=== PATIENT | female | born 1960 | race Caucasian/White ===

== ENCOUNTER → 2021-05-31 13:25 | Outpatient (CLI) | payer BC, SELFPAY ==
--- NOTE | ~2021-05-31 | DEXA_ITS ---
Bone Density Report Name: Regine Wang Age: 60 Sex: Female Ethnicity: White Date of : 1960 Indication: postmenopausal; screening for osteoporosis; height loss; Referring Provider: Sapphire, Margarette Study: Bone densitometry was performed. Exam Date: May 31, 2021 Accession number: [id number] Bone Density: Region BMD T-score Z-score Classification AP Spine (L1-L4) 0.846 -1.8 -0.2 Osteopenia Femoral Neck (Left) 0.740 -1.0 0.4 Normal Total Hip (Left) 0.851 -0.7 0.4 Normal Femoral Neck (Right) 0.843 -0.1 1.4 Normal Total Hip (Right) 0.892 -0.4 0.7 Normal Total Hip Mean 0.872 -0.6 0.6 Normal World Health Organization criteria for BMD impression classify patients as: Normal (T-score at or above -1.0), Osteopenia (T-score between -1.0 and -2.5), or Osteoporosis (T-score at or below -2.5). 10-year Fracture Risk(1): Major Osteoporotic Fracture 7.0% Hip Fracture 0.4% Reported Risk Factors: [place] (), Neck BMD=0.740, BMI=37.8 (1) FRAX(R) Version 3.08. Fracture probability calculated for an untreated patient. Fracture probability may be lower if the patient has received treatment. Clinical Information Provided by Patient: Has used the following medications: Vitamin D, MTV Patient maximum height was 64 Menopause Age: 55 Does not regularly consume dairy products Onset of menses at age 13 Number of children 1 Impression: The patient has low bone mass, based on the Total Spine T-score. The patient has an estimated ten-year risk of hip fracture of 0.4% and an estimated ten-year risk of major fracture of 7%, based on the WHO FRAX algorithm. Discussion: BONE DENSITY IS LOW AT ONE OR MORE SKELETAL SITES. This patient's lowest T-score is low at one or more skeletal sites. It meets the World Health Organization's (WHO) criteria for ?low bone mass? (T-score between -1.0 and -2.5). The patient's 10-year risk of fracture as calculated by FRAX is less than the threshold where pharmacological therapy is recommended by the National Osteoporosis Foundation (NOF). However, all treatment decisions require clinical judgment and consideration of individual patient factors, including patient preferences, comorbidities, previous drug use, risk factors not captured in the FRAX model (e.g., frailty, falls, vitamin D deficiency, increased bone turnover, interval significant decline in bone density) and possible under or overestimation of fracture risk by FRAX. The patient should follow a healthful lifestyle (good nutrition with adequate calcium and vitamin D, and appropriate weight-bearing exercise). Follow-Up: Consider repeating this study in 2 to 3 years to reassess this patient's status, or sooner if there is some new clinical indication. Reported by: SUKI on 05/31/2021 2:31:00 PM. ___
--- NOTE | ~2021-05-31 | MM_ITS ---
EXAMINATION: MM screening [facility] BI w jake HISTORY: Screening TECHNIQUE: Craniocaudal and mediolateral oblique 3-D tomosynthesis images were obtained and synthetic 2-D images were generated. CAD analysis was submitted and interpreted. COMPARISON: Comparison to multiple prior studies sequentially, with oldest reviewed study dated 01/2017. BREAST PARENCHYMAL COMPOSITION: There are scattered areas of fibroglandular density. FINDINGS: There is no evidence of suspicious mass, calcification, or architectural distortion to sugg est malignancy in either breast. There has been no suspicious interval change. IMPRESSION: 1. No mammographic evidence of malignancy. 2. Recommend routine screening mammography in one year. BI-RADS Category 1: Negative Reviewed, dictated and finalized at location A.
== END ==
PROVIDERS: Visit Provider Nurse Practitioner
DX: Z12.31 Encounter for screening mammogram for malignant neoplasm of breast (principal); Z78.0 Asymptomatic menopausal state; M85.88 Other specified disorders of bone density and structure, other site
CPT/HCPCS: 77063; 77067; 77080

== ENCOUNTER 2021-12-17 16:42 | Emergency (ER) | payer BC, SELFPAY ==
[2021-12-17 16:48] VITALS: BP 181/76; PULSE 93; RESP 20; TEMP 36.6; O2SAT 99
--- NOTE | 2021-12-17 17:19 | ED.URI ---
HPI - URI/Sore Throat General Chief Complaint: Upper Respiratory Infection Stated Complaint: sore throat/congestion/sneezing Time Seen by Provider: 12/17/21 17:19 Source: patient, RN notes reviewed and old records reviewed Mode of arrival: ambulatory Limitations: no limitations History of Present Illness HPI Narrative: 61 year old female who presents to [facility] care with complaints of one week duration of sore throat, nasal congestion and drainage and cough. Patient reports that she has been taking Mucinex and Zyrtec with no resolution of her symptoms. Patient reports that she does have some facial pressure and also frontal headache. Patient states that her drainage is now yellowish in color. Patient denies any chills or sweats, or body aches,no known fevers stated. Related Data Allergies Allergy/AdvReac Type Severity Reaction Status Date / Time acetaminophen [From Tylenol] Allergy Unknown Verified 12/17/21 17:33 Sulfa (Sulfonamide Allergy Unknown Verified 12/17/21 17:33 Antibiotics) Review of Systems Review of Systems: CONSTITUTIONAL: Denies fever, chills, or sweats. EYES: Denies visual changes, redness, or discharge. ENT: Positive for rhinorrhea, congestion, sore throat, no otalgia. CARDIOVASCULAR: Denies chest pain, palpitations, or edema. RESPIRATORY: Positive for cough denies dyspnea. GASTROINTESTINAL: Denies abdominal pain, nausea, vomiting, or diarrhea. GENITOURINARY: Denies dysuria or hematuria. SKIN: Denies rash or itching. MUSCULOSKELETAL: Denies back pain, joint pain, or myalgia. NEUROLOGIC: Positive headache, no numbness, or weakness. PSYCHIATRIC: Denies anxiety or depression. All systems reviewed & are unremarkable except as noted in HPI and below PMFSH Past Medical History Medical History (Updated 12/17/21 @ 19:39 by Jyothi Martin NP) No pertinent past medical history Surgical History Surgical History (Updated 12/17/21 @ 19:40 by Jyothi Martin NP) No history of previous surgery Social History Social History (Updated 12/17/21 @ 19:38 by Jyothi Martin NP) Smoking status: Never smoker Substance use: never Living arrangements: with family Gender identity (if verbalized by the patient): Female Comments At time of signature, agree with nursing past medical, surgical, social and family history. There is no relevant family history pertinent to the presenting complaint Exam Narrative: GENERAL: Well-appearing, well-nourished, and in no acute distress. HEAD: Normocephalic, atraumatic. EYES: PERRLA and EOMI. ENT: Nares red with turbinates swollen, yellowish rhinorrhea no epistaxis. Mucous membranes moist.TM's normal with good light reflex, throat red with no lesions or exudates, tonsils red and swollen NECK: Supple. no lymphadenopathy CHEST: Clear to auscultation. No respiratory distress.no tachypnea, SAO2 99% on room air. HEART: Regular rate and rhythm. No murmur heard. Normal peripheral pulses. ABDOMEN: Soft, nontender, nondistended, normal active bowel sounds. EXTREMITIES: Normal range of motion. No edema. SKIN: Warm, dry, no rash. NEURO: No focal deficits. Alert and oriented x3. Course Course Level of Care: Express Care Visit Vital Signs Vital signs: Vital Signs Temperature 36.6 C 12/17/21 16:48 Pulse Rate 93 12/17/21 16:48 Respiratory Rate 20 12/17/21 16:48 Blood Pressure 181/76 H 12/17/21 16:48 Pulse Oximetry 99 12/17/21 16:48 Temperature 36.6 C 12/17/21 16:48 Pulse Rate 93 12/17/21 16:48 Respiratory Rate 20 12/17/21 16:48 Blood Pressure 181/76 H 12/17/21 16:48 Pulse Oximetry 99 12/17/21 16:48 MDM - URI/Sore Throat Differential Diagnosis Differential diagnosis: Likely upper respiratory infection, sinusitis, viral infection and pharyngitis Medical Records Attestation: I reviewed the patient's medical records. Lab Data Attestation: I reviewed the patient's lab results. Lab results narrative: Strep screen negative Labs: Stre
== END 2021-12-17 17:40 | disposition home or self-care (01) ==
PROVIDERS: Emergency Provider Registered Nurse
DX: J32.9 Chronic sinusitis, unspecified (principal)
CPT/HCPCS: 87081; 87880; 99213; G0463

== ENCOUNTER → 2022-06-14 13:52 | Outpatient (CLI) | payer BC, SELFPAY ==
--- NOTE | ~2022-06-14 | MM_ITS ---
EXAMINATION: MM screening [facility] BI w jake HISTORY: Screening TECHNIQUE: Craniocaudal and mediolateral oblique 3-D tomosynthesis images were obtained and synthetic 2-D images were generated. CAD analysis was submitted and interpreted. COMPARISON: Comparison to multiple prior studies sequentially, with oldest reviewed study dated 01/2017. BREAST PARENCHYMAL COMPOSITION: Breast composed of scattered areas of fibroglandular density FINDINGS: There is no evidence of suspicious mass, calcification, or architectural distortion to sugg est malignancy in either breast. There has been no suspicious interval change. IMPRESSION: 1. No mammographic evidence of malignancy. 2. Recommend routine screening mammography in one year. BI-RADS Category 1: Negative Reviewed, dictated and finalized at location A.
== END ==
PROVIDERS: PCP Family Medicine; Visit Provider Nurse Practitioner
DX: Z12.31 Encounter for screening mammogram for malignant neoplasm of breast (principal)
CPT/HCPCS: 77063; 77067

== ENCOUNTER → 2023-04-21 07:51 | Outpatient (CLI) | payer BC, SELFPAY ==
--- NOTE | ~2023-04-21 | MMUS_ITS ---
EXAMINATION: MM diagnostic [facility] BI w jake, US breast LT complete HISTORY: Yellowish left breast nipple discharge TECHNIQUE: ML, MLO and CC 3-D tomosynthesis images of both breasts were performed and synthetic 2-D i mages were generated. Magnification views of left breast. CAD analysis was submitted and interpreted. Complete left breast ultrasound examination including all 4 quadrants and subareolar area was perform ed. COMPARISON: 06/14/2022, 05/31/2021, 12/24/2016 bilateral digital screening mammogram examinations MAMMOGRAM FINDINGS: There is a new long linear subsegmental array of abnormal suspicious amorphous mi crocalcifications including some linear branching calcifications in the inner aspect of the mid outer left breast since prior examinations. No suspicious mass or architectural distortion, skin thickening or retraction is noted otherwise. There is a biopsy marker in the upper outer left breast; history of prior benign left breast biopsy i n 2017. ULTRASOUND FINDINGS: 3:00 3 cm from nipple: There is an irregular elongated complex mixed cystic and solid lesion with shayla e internal vascularity, in the region of the suspicious mammographic findings. This measures at least 3 x 9 x 13 mm. Ultrasound-guided biopsy is recommended. 8:00 3 cm from nipple: 1.9 x 3.5 mm probable cyst Left breast subareolar area: Serpiginous irregular hypoechoic area with internal vascularity and some posterior shadowing, measuring at least 8 x 13 mm. This is very suspicious. Ultrasound-guided biopsy is recommended. IMPRESSION: 1. New suspicious mammographic microcalcifications with associated abnormal very irregular serpiginou s hypoechoic shadowing vascular masses noted on ultrasound at 3:00 and subareolar areas of left breas t. 2. Ultrasound-guided biopsy of these areas is recommended BI-RADS category 4, suspicious findings. Dr. Trevino telephoned the report and ultrasound-guided biopsy recommendations of the left breast on 04/02 at 0945 hours to [employer] Chantelle. Reviewed, dictated and finalized at location A. IMPRESSION: 1. New suspicious mammographic microcalcifications with associated abnormal ruma y irregular serpiginous hypoechoic shadowing vascular masses noted on ultrasoun d at 3:00 and subareolar areas of left breast. 2. Ultrasound-guided biopsy of these areas is recommended BI-RADS category 4, suspicious findings. Dr. Trevino telephoned the report and ultrasound-guided biopsy recommendations of the left breast on 04/21/2023 at 0945 hours to [employer] Teresa.
== END ==
PROVIDERS: PCP Family Medicine; Visit Provider Nurse Practitioner
DX: N64.52 Nipple discharge (principal); R92.8 Other abnormal and inconclusive findings on diagnostic imaging of breast
CPT/HCPCS: 76641; 77062; 77066; G0279

== ENCOUNTER 2023-05-22 09:06 | Outpatient (CLI) | payer BC, SELFPAY ==
--- NOTE | ~2023-05-22 | US_ITS ---
US breast LT limited 05/22/2023 10:19 Indication: Serpiginous structure identified on recent examination. Biopsy requested. Procedure: High-resolution Limited ultrasound of the left breast.. Dr. Ballesteros was present during the ex amination. Comparison: Ultrasound dated 04/21/2023 Findings: There is a branching duct in the subareolar location of the left breast without significant internal debris or internal vascularity. No suspicious solid masses are identified. Impression: 1: Probable benign focally prominent subareolar duct without suspicious internal debris or vascularit y. Six-month follow-up Limited left breast ultrasound recommended. Alternatively, if patient's nipple discharge persists, consider correlation with ductogram or MRI of the breasts. BI-RADS CATEGORY 3-PROBABLY BENIGN FINDING Reviewed, dictated and finalized at location A. Impression: 1: Probable benign focally prominent subareolar duct without suspicious interna l debris or vascularity. Six-month follow-up Limited left breast ultrasound rec ommended. Alternatively, if patient's nipple discharge persists, consider corre lation with ductogram or MRI of the breasts. BI-RADS CATEGORY 3-PROBABLY BENIGN FINDING
--- NOTE | ~2023-05-22 | MM_ITS ---
MM stereotactic bx LT, MM post biopsy diagnostic LT, MM stereotactic specimen LT EXAMINATION: MM stereotactic bx LT, MM post biopsy diagnostic LT, MM stereotactic specimen LT INDICATION: Abnormal mammogram with calcifications in the left breast. Stereotactic core biopsy is r equested evaluate for malignancy.] TECHNIQUE AND FINDINGS: The risks and potential benefits of the procedure were discussed with the patient and written informe d consent was obtained. The patient was placed in the prone position clustered at the table with the left breast in the caudocranial compression, and the area of interest was localized and targeted uti lizing digital imaging with stereotaxis. After sterile preparation of the skin, 1% lidocaine was utilized for local anesthesia at the skin pun cture site and 1% lidocaine with epinephrine was utilized for deeper local anesthesia/is about the bi opsy site. A 9G Vivoxid vacuum assisted biopsy needle was advanced to the level of the calcification o f interest from a caudal approach utilizing stereotactic guidance and a total of 8 tissue core biopsi es were obtained. A specimen radiograph demonstrates that the calcifications of interest are included within the tissue cores. A tissue marker clip was then placed at the biopsy site. The needle was removed and hemosta sis was achieved. The patient tolerated the procedure well and there is no evidence of significant i mmediate complication. The patient was given verbal as well as written postprocedural instructions p rior to discharge from the department. Tissue cores were submitted to surgical pathology for histolo gic analysis. A 2-view left unilateral digital mammogram was obtained post procedure and this demonstrates that the tissue marker clip is in expected position.] IMPRESSION: 1. Successful stereotactic biopsy of calcifications in the central aspect of the left breast, follow ed by tissue marker clip placement. Please refer to pathology report for histologic analysis. Reviewed, dictated and finalized at location A. IMPRESSION: 1. Successful stereotactic biopsy of calcifications in the central aspect of t he left breast, followed by tissue marker clip placement. Please refer to path ology report for histologic analysis. IMPRESSION: 1. Successful stereotactic biopsy of calcifications in the central aspect of t he left breast, followed by tissue marker clip placement. Please refer to path ology report for histologic analysis.
== END 2023-05-22 09:07 | disposition home or self-care (01) ==
PROVIDERS: PCP Family Medicine; Visit Provider Physician Assistant Surgical
DX: D05.92 Unspecified type of carcinoma in situ of left breast (principal)
CPT/HCPCS: 19081; 76642; 77065; 88305; 88342

== ENCOUNTER 2023-06-11 08:53 | Outpatient (CLI) | payer BC, SELFPAY ==
--- NOTE | ~2023-06-11 | US_ITS ---
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 The patient verbalized understanding and gave consent. Timeout procedure was performed. The skin of the left breast was prepared with sterile Betadine solution. 1% lidocaine local anestheti c was administered. With longitudinal imaging of the 2 closely associated biopsy markers, the Magsee d needle was introduced from an inferior approach and directed into the hypoechoic tissue between 2 c losely associated tissue markers. The Magseed was deployed under ultrasound guidance, with documenta tion of Magseed placement in the mass with ultrasound images. The patient was very cooperative and tolerated the procedure very well, without complaint or apparent complication. IMPRESSION: Successful percutaneous ultrasound guided Magseed placement at 6:00 1 cm from nipple soft tissue mass between 2 tissue markers Reviewed, dictated and finalized at Location A. Reviewed, dictated and finalized at location A.
--- NOTE | ~2023-06-11 | MM_ITS ---
EXAMINATION: MM post biopsy invasive LT HISTORY: Post magseed placement mammogram TECHNIQUE: ML and CC images of the left breast were performed. COMPARISON: 05/22/2023 post stereotactic biopsy mammogram FINDINGS: Radiopaque magseed is situated between 2 pre-existing tissue markers in the lower central t o outer left breast. IMPRESSION: Radiopaque magseed is situated between 2 pre-existing tissue markers in the lower central to outer le ft breast. Reviewed, dictated and finalized at location A. IMPRESSION: Radiopaque magseed is situated between 2 pre-existing tissue markers in the low er central to outer left breast.
== END 2023-06-11 08:54 | disposition home or self-care (01) ==
PROVIDERS: PCP Family Medicine; Visit Provider Surgery
DX: D05.12 Intraductal carcinoma in situ of left breast (principal)
CPT/HCPCS: 19285; A4648

== ENCOUNTER 2023-07-14 00:32 | Day surgery (SDC) | payer MEDICARE, SELFPAY ==
[2023-07-08 14:22] VITALS: BMI 36.2
--- NOTE | 2023-07-08 14:38 | PC.NURSE ---
Report to the Outpatient Waiting Room, entrance under the green pavilion located off [facility], at time ___0600____ on date __07/14/23 . Planned Procedure Time: ___07 . Time changes happen often and if your time is changed the preop area will call you the afternoon before. - You and your visitor will be asked to self-screen and do not enter if you have any COVID symptoms. - A mask is optional within the hospital at this time. Patients may have clear liquids (water, carbonated beverages, clear teas, apple juice) until 3 hours prior to surgery (0430 AM) with a maximum of 20 ounces. - No food from midnight until time of surgery - Infants may have breast milk until 4 hours before surgery, infant formula 6 hours prior to surgery. - Children will be allowed to drink immediately following surgery. If applicable, please bring a bottle or sippy cup to assist with drinking. Juice, water, soda, and popsicles are readily available. For infants on formula, please bring formula the day of surgery. Pacifiers are allowed. Take the following medications with a SIP of water the morning of surgery: NONE DO NOT STOP ANY OF YOUR OTHER PRESCRIPTION MEDICATIONS PRIOR TO SURGERY ?EXCEPT THE FOLLOWING Medications to discontinue per ANESTHESIA - _VITAMINS/SUPPLEMENTS 3 DAYS PRIOR TO SURGERY Date to take last dose____07/10/23 Please no make-up, nail nigerian, hairspray, perfume, deodorant, or body powder the day of surgery. No jewelry (including any body piercings) or valuables the day of surgery, leave them at home. Please take a shower or bath the night before, or the morning of, surgery with an antibacterial soap. Wear comfortable, loose fitting clothing. Children are encouraged to wear pajamas. - Jewelry must be removed prior to entering the operating room. Rings and piercings that are not removed may be cut off. - The hospital will not accept responsibility for valuables. - Please leave all valuables, including medications, at home the day of surgery. If you are going home after surgery, a licensed courier delivery driver must drive you home. - NO public transportation without another adult if you receive anesthesia. - We recommend that an adult stay with you for 24 hours following discharge. - We also recommend that you do not drive, make important decision, drink alcoholic beverages, or take any drugs that were not prescribed by your health care provider for at least 24 hours after your discharge time. For Pediatric surgeries, we recommend two adults accompany the child home. Follow any additional instructions given to you from your surgeon. If you or anyone in your household have experienced Covid symptoms in the past week, please notify your surgeon or the nurse liaison at the phone number below for possible testing. Telephone instructions given to ____PT and asked if any additional questions and then verbalized understanding. Patient advised to call surgeon office or pre surgery nurse liaison [phone] if any additional questions.
[2023-07-14] VITALS (10 sets, daily range): BP systolic 99–184; BP diastolic 50–90; PULSE 74–93; RESP 14–18; TEMP 35.9–36.6; O2SAT 92–100
--- NOTE | ~2023-07-14 | MM_ITS ---
EXAMINATION: MM_FAXITRON_MG INDICATION: Left breast lumpectomy with magseed localization TECHNIQUE: Left breast specimen radiographs are submitted for review. COMPARISON: None available FINDINGS: The biopsy marker and magseed are contained within the specimen radiographs. IMPRESSION: 1. Biopsy marker and magseed within the specimen radiographs. These findings were communicated at 084 1 hours on 07/14/2023. Reviewed, dictated and finalized at location A. TER REPAIR TECHNICIAN IMPRESSION: 1. Biopsy marker and magseed within the specimen radiographs. These findings we re communicated at 0841 hours on 07/14/2023.
[2023-07-14] MEDS: LACTATED RINGERS 1,000 ML 30 ML IV CONT ×2 (06:32→09:08)
--- NOTE | 2023-07-14 06:44 | WPDANESEPPF ---
Anes - Initial Pre Proc Eval Procedure: Operation Date: 07/14/23 07:30 Proposed Procedures p Left Breast Lumpectomy with Magseed Localization - Rere Demarco MD Date/Time: 07/14/23 06:44 Surgeon: Rere Demarco MD Pre Op Diagnosis: intraductal carcinoma in situ of left breast Patient Data Age: 63 Gender: F Height: 1.6 m Weight: 92.72 kg Allergies Allergy/AdvReac Type Severity Reaction Status Date / Time acetaminophen [From Tylenol] Allergy Hives Verified 07/08/23 14:18 Sulfa (Sulfonamide Allergy Rash Verified 07/08/23 14:18 Antibiotics) Home Medications Medication Instructions Recorded Confirmed Type ascorbic acid (vitamin C) 500 mg 1,000 mg PO DAILY 04/28/23 07/08/23 History capsule aspirin 81 mg chewable tablet 81 mg PO HS 04/28/23 07/08/23 History calcium citrate 1,000 mg tablet 1,000 mg PO DAILY 04/28/23 07/08/23 History cholecalciferol (vitamin D3) 125 300 mcg PO DAILY 04/28/23 07/08/23 History mcg (5,000 unit) capsule cinnamon bark 500 mg capsule 500 mg PO DAILY 04/28/23 07/08/23 History (Cinnamon) omega-3 fatty acids-fish oil 360 1 cap PO DAILY 04/28/23 07/08/23 History mg-1,200 mg capsule (Fish Oil) vitamin B complex (B 1 tablet PO DAILY 04/28/23 07/08/23 History Complex-Vitamin B12 tablet) flaxseed 1 cap DAILY 07/08/23 07/08/23 History multivitamin 1 tablet PO DAILY 07/08/23 07/08/23 History tumeric 100 mg-lavern 150 mg-olive 1 cap PO DAILY 07/08/23 07/08/23 History 50 mg-oreg 150 mg-caprylate capsule vitamin E 1 cap DAILY 07/08/23 07/08/23 History Patient hx anesthesia problems: none Family hx anesthesia problems: none Results Review: All pre-operative results and documents have been reviewed as part of the pre-operative evaluation. [facility] Past Medical History Medical History (Updated 07/14/23 @ 06:45 by Ken Alva MD) Obesity Snoring never tested for BHAVANA Tonsil stone has one q6 weeks, last 3 weeks ago Surgical History Surgical History (Updated 07/14/23 @ 06:46 by Ken Alva MD) H/O colonoscopy History of section Family History Family History Father Pancreatic cancer Hypertension Grandparent Breast cancer Pancreatic cancer Social History Social History Smoking status: Never smoker Second hand tobacco smoke exposure: No Alcohol intake: current Alcohol use details: WINE ON FRIDAY WITH COMMUNION Substance use: never Substance use type: does not use Lack of Transportation: No Lack of Food: Never True Current Housing: I Have Housing Concerned About Future Housing: No Difficulty Paying Gas/Electric Bills: No Difficulty Paying for Meds: No Currently Unemployed: No Education: High School Diploma/GED Difficulty w/ Childcare or Family Care: No Living arrangements: with family Gender identity (if verbalized by the patient): Female Spiritual care concerns: No Anes - Eval Final PreProcedure Day of Procedure 07/14/23 06:44 Patient weight: obese Heart: regular rate and rhythm Lungs: clear to auscultation Airway: Mallampati scale class III Neurological: alert and oriented Last oral intake: >/= 8 hours ASA classification: III Emergent: no Anesthetic plan: proceed Anesthesia type and monitoring: general LMA and standard monitoring Results Review: All pre-operative results and documents have been reviewed as part of the pre-operative evaluation. Informed Consent: The patient's anesthetic plan and its attendant risks and benefits were discussed with the patient/family/POA. Questions were solicited and answers provided to the satisfaction of the patient/family/POA.
--- NOTE | 2023-07-14 06:57 | WPDHPUPDATE1 ---
History and Physical Update Update Date/Time: 07/14/23 06:57 History and Physical has been reviewed, including an updated exam of the patient. There are NO changes in the patient's condition. Risks, benefits, and alternatives have been discussed and questions answered. Patient agrees to proceed with procedure.
[2023-07-14] MEDS: ceFAZolin 2 GM/D5W 50 ML 2 GM/50 ML BAG IVPB (07:30)
[2023-07-14] MEDS: BUPIVACAINE/EPINEPHRINE 0.5% 50 ML VIAL 30 ML INFILTRATE (07:55)
--- NOTE | 2023-07-14 08:50 | SUR.OPER ---
Left Breast Lumpectomy- Incision @ 0750 Excision @ 0829 Faxitron @ 0835 Rad Report @ 0844 Out of room @ 0847 Received by lab @ 0848 Left Breast Inferior Margin Excision @ 0822 Out of Room @ 0848 Left Breast Anterior Margin Excision @ 0823 Out of Room @0800
--- NOTE | 2023-07-14 08:57 | W.PM.PROC2 ---
Procedure Note - Detailed Date of Procedure 07/14/23 Pre-op Diagnosis Left breast ductal carcinoma in situ Left nipple discharge, pathological Post-op Diagnosis Same Procedure Performed 1. Left breast lumpectomy with magseed localization 2. Central ductal exploration and excision en bloc 3. Shave biopsy of nipple skin Surgeon Rere Demarco MD Freight Unloader Lizzette Wise PA-C Anesthesia General Indications 63-year-old female who presented for evaluation of abnormal left nipple discharge and suspicious microcalcifications on mammogram. Stereotactic biopsy of microcalcifications showed high-grade DCIS, and after discussing surgical options, patient elected to proceed with breast conservation therapy with lumpectomy and adjuvant radiation. Risks of the procedure were discussed with the patient which included but not limited to risk of bleeding, infection, positive margin, recurrence, possible need for additional procedures in the future, asymmetry, wound healing problems, as well as the risk of anesthesia. All questions were answered patient has agreed to proceed. Description of Procedure The patient underwent maxi localization under stereotactic guidance by Radiology and presented to the preoperative area for surgery. She was taken to the operating room and laid supine in the OR table. Sequential compression devices were applied. General anesthesia was induced without difficulty. The left chest area was prepped and draped in a sterile fashion. The sentimag probe was used to identify the area of highest activity which was in the inferior periareolar area. A small inferior periareolar incision was made and dissection was carried down through the subcutaneous tissue. The probe was used to guide the margins around the Mag seed, and care was taken to ensure that the microcalcifications seen on previous mammogram were included in the lumpectomy specimen (which on mammogram appear to be at least 7 cm deep into the breast). The probe was used to scan the margins around the seed and an additional inferior and anterior margin were excised due to close proximity. The lumpectomy specimen was oriented using surgical paint according to the electrical appliance servicer instructions and placed in the Faxitron. Intraoperative images were taken and reviewed the biopsy clip, the mass and magseed as well as microcalcifications within the specimen. The lumpectomy specimen as well as the anterior and inferior margins were sent to pathology as fresh specimen. Given patient's nipple discharge, a lacrimal probe was placed to the exterior opening of the duct noted to have the nipple discharge. I was able to identify the duct and this was included in the lumpectomy specimen. A small shave biopsy was taken of the nipple, given the desquamated appearance and sent as permanent specimen to pathology. Hemostasis was assured. The cavity was approximated with 2 0 Vicryl for intraparenchymal sutures. The deep dermal layer was then closed with 3-0 Vicryl in interrupted fashion followed by 4-0 Monocryl in a subcuticular fashion. Dermabond was applied followed by sterile dressing and a surgical bra. Patient was awoken from anesthesia and taken to the recovery in stable condition. All needles, instruments, and sponge counts were correct as reported by the operating room staff. Lizzette Wise PA-C was present and assisted with retraction patient positioning throughout the case. Estimated Blood Loss 5 Drains No Pathology Yes Complications No immediate complications Condition Stable Disposition PACU [facility] Billing Surgery - Charge Forward: Surgery Billing (CPT 14123, 66922, [id number])
== END 2023-07-14 11:16 | disposition home or self-care (01) ==
PROVIDERS: PCP Family Medicine; Visit Provider Surgery
PROC: (CPT 19301; principal; 2023-07-14 07:30)
DX: D05.12 Intraductal carcinoma in situ of left breast (principal); C44.591 Other specified malignant neoplasm of skin of breast; Z79.82 Long term (current) use of aspirin; E66.9 Obesity, unspecified; Z68.29 Body mass index [BMI] 29.0-29.9, adult; Z17.0 Estrogen receptor positive status [ER+]
CPT/HCPCS: 19301; 11102; 76098; 88305; 88307; 88342; J0690; J1100; J2250; J2371; J2704; J3010; J7120; Q9968

== ENCOUNTER → 2023-07-23 12:45 | Outpatient (CLI) | payer MEDICARE, SELFPAY ==
--- NOTE | ~2023-07-23 | DEXA_ITS ---
Bone Density Report Name: RIA GERMAN Age: 63 Sex: Female Ethnicity: White Date of : 1960 Indication: osteopenia; height loss; postmenopausal Referring Provider: Sapphire, Margarette Study: Bone densitometry was performed. Exam Date: July 23, 2023 Accession number: [id number] Bone Density: Region BMD T-score Z-score Classification AP Spine (L1-L4) 0.805 -2.2 -0.4 Osteopenia Femoral Neck (Left) 0.809 -0.4 1.2 Normal Total Hip (Left) 0.881 -0.5 0.7 Normal Femoral Neck (Right) 0.810 -0.4 1.2 Normal Total Hip (Right) 0.903 -0.3 0.9 Normal Total Hip Mean 0.892 -0.4 0.8 Normal World Health Organization criteria for BMD impression classify patients as: Normal (T-score at or above -1.0), Osteopenia (T-score between -1.0 and -2.5), or Osteoporosis (T-score at or below -2.5). 10-year Fracture Risk(1): Major Osteoporotic Fracture 6.5% Hip Fracture 0.3% Reported Risk Factors: [place] (), Neck BMD=0.810, BMI=36.4 (1) FRAX(R) Version 3.08. Fracture probability calculated for an untreated patient. Fracture probability may be lower if the patient has received treatment. Previous Exams: Region Exam Age BMD T-score BMD Change BMD Change Date g/cm2 vs Baseline vs Previous AP Spine(L1-L4) 07/23/2023 63 0.805 -2.2 -0.042* -0.042* 05/31/2021 60 0.846 -1.8 Total Hip(Left) 07/23/2023 63 0.881 -0.5 0.030* 0.030* 05/31/2021 60 0.851 -0.7 Total Hip(Right) 07/23/2023 63 0.903 -0.3 0.010 0.010 05/31/2021 60 0.892 -0.4 *Denotes significance at 95% confidence level, LSC for AP Spine = 0.022 g/cm2, LSC for Total Hip = 0.027 g/cm2 Clinical Information Provided by Patient: Has used the following medications: Vitamin D, Calcium, MTV Patient maximum height was 64 Menopause Age: 55 No regular weight bearing exercise Does not regularly consume dairy products Onset of menses at age 13 Number of children 1 Impression: The patient has low bone mass, based on the Total Spine T-score. The patient has an estimated ten-year risk of hip fracture of 0.3% and an estimated ten-year risk of major fracture of 6.5%, based on the WHO FRAX algorithm. The BMD for the AP Spine(L1-L4) decreased, changing by -0.042 since the last DXA exam. Discussion: BONE DENSITY IS LOW AT ONE OR MORE SKELETAL SITES. This patient's lowest T-score is low at one or more skeletal sites. It meets the W
== END ==
PROVIDERS: PCP Nurse Practitioner; Visit Provider Nurse Practitioner
DX: M85.88 Other specified disorders of bone density and structure, other site (principal)
CPT/HCPCS: 77080

== ENCOUNTER 2023-08-12 14:13 | Outpatient (CLI) | payer MEDICARE, SELFPAY | END 2023-08-12 14:14 | disposition home or self-care (01) | PROVIDERS: PCP Family Medicine; Visit Provider Surgery | DX: Z01.818 Encounter for other preprocedural examination (principal); D05.12 Intraductal carcinoma in situ of left breast | CPT/HCPCS: 36415; 86850; 86900; 86901 ==

== ENCOUNTER 2023-08-14 00:16 | Day surgery (SDC) | payer MEDICARE, SELFPAY ==
--- NOTE | 2023-08-11 13:07 | PC.NURSE ---
PRE-OP INSTRUCTIONS, PLEASE READ CAREFULLY Report to the Outpatient Waiting Room, entrance under the green pavilion located off [facility], at time _0630_ on date _08/14/23_. Planned Procedure Time: _0830_. PACK A SMALL OVERNIGHT BAG AND LEAVE IN THE CAR Time changes happen often and if your time is changed the preop area will call you the afternoon before. - You and your visitor will be asked to self-screen and do not enter if you have any COVID symptoms. - A mask is optional within the hospital at this time. Patients may have clear liquids (water, carbonated beverages, clear teas, apple juice) until 3 hours prior to surgery (0530 AM) with a maximum of 20 ounces. - No food from midnight until time of surgery Take the following medications with a SIP of water the morning of surgery: _TRAMADOL IF NEEDED_ DO NOT STOP ANY OF YOUR OTHER PRESCRIPTION MEDICATIONS PRIOR TO SURGERY ?EXCEPT THE FOLLOWING Medications to discontinue per DR. ERNANDEZ - _VITAMINS/SUPPLEMENTS 5 DAYS PRIOR TO SURGERY, Last Dose_08/08/23 (PER PATIENT)_ Please no make-up, nail maltese, hairspray, perfume, deodorant, or body powder the day of surgery. No jewelry (including any body piercings) or valuables the day of surgery, leave them at home. Please take a shower or bath the night before, or the morning of, surgery with an antibacterial soap. Wear comfortable, loose fitting clothing. - Jewelry must be removed prior to entering the operating room. Rings and piercings that are not removed may be cut off. - The hospital will not accept responsibility for valuables. - Please leave all valuables, including medications, at home the day of surgery. If you are going home after surgery, a licensed four horse hitch driver must drive you home. - NO public transportation without another adult if you receive anesthesia. - We recommend that an adult stay with you for 24 hours following discharge. - We also recommend that you do not drive, make important decision, drink alcoholic beverages, or take any drugs that were not prescribed by your health care provider for at least 24 hours after your discharge time. Follow any additional instructions given to you from your surgeon. If you or anyone in your household have experienced Covid symptoms in the past week, please notify your surgeon or the nurse liaison at the phone number below for possible testing. Telephone instructions given to _PATIENT_and asked if any additional questions and then verbalized understanding. Patient advised to call surgeon office or pre surgery nurse liaison [phone] if any additional questions.
[2023-08-11 13:11] VITALS: BMI 36.1
[2023-08-14] VITALS (15 sets, daily range): BP systolic 126–182; BP diastolic 64–89; PULSE 80–107; RESP 11–18; TEMP 36–36.5; O2SAT 95–100
--- NOTE | ~2023-08-14 | NM_ITS ---
NM sentinel node inject only 08/14/2023 11:28 TRANSCRIBING OPERATOR HEAD INDICATION: Left breast cancer TECHNIQUE: 0.997 Millicuries Tc 99m filtered sulfur colloid was injected and 4 aliquots in the anteri or upper outer quadrant of the breast near the areola. No images were obtained. IMPRESSION: 1: Status post left breast sentinel lymph node radiopharmaceutical injection. Reviewed, dictated and finalized at location A. SCRIBING OPERATOR HEAD
[2023-08-14] MEDS: LACTATED RINGERS 1,000 ML 30 ML IV CONT ×3 (07:00→14:24)
--- NOTE | 2023-08-14 08:08 | P.HPUP_ITS ---
History and Physical Update Update Date/Time: 08/14/23 08:08 Patient seen and examined in pre-operative holding area. No interval change in medical history or symptoms. Patient recalls previous discussion of benefits and alternatives to procedure. Continues to desire to proceed with immediate left breast reconstruction with silicone implant and alloderm possible tissue restaurant bartender and symmetrizing right breast reduction . Reviewed procedure, post-op expectations and risks including but not limited to bleeding, infection, injury to tendon/nerve/vessel, decreased hand function, stiffness, RSD, no change or worsening of symptoms. I discussed the possible use of assistants and their participation in the case. Patient stated understanding and signed the consent form wishing to proceed.
--- NOTE | 2023-08-14 08:09 | WPDHPUPDATE1 ---
History and Physical Update Update Date/Time: 08/14/23 08:09 History and Physical has been reviewed, including an updated exam of the patient. There are NO changes in the patient's condition. Risks, benefits, and alternatives have been discussed and questions answered. Patient agrees to proceed with procedure.
--- NOTE | 2023-08-14 08:23 | W.PM.PROC2 ---
Procedure Note - Detailed Date of Procedure 08/14/23 Pre-op Diagnosis left breast CA Post-op Diagnosis Other (acquired absence left breast) Procedure Performed left breast reconstruction with pre-pec silicone implant and alloderm and symmetrizing right breast reduction Surgeon Cooper Franks MD Topper Press Operator Automatic Lizzette Wise PA-C Anesthesia General Description of Procedure Patient was seen in the preoperative holding area and marked. She was taken back to the operating room placed on the table in the supine position. Time-out was performed with Anesthesia surgeons and staff agreeing patient's name site of surgery performed. SCDs were placed on the lower extremities. Antibiotics were given IV. After general anesthesia was administered the breasts were prepped and draped in usual sterile fashion. Care was then given to Dr. demarco proceeded with performing the left sentinel lymph node biopsy. This is dictated separately. After Dr. Demarco completed her sentinel lymph node biopsy I turned my attention to the left breast. The patient was notably ptotic as discussed in preoperative planning and management of the skin was essential for adequate reconstruction. The patient's diagnosis also include Paget's disease of the nipple which was requiring removal of the nipple and areolar complex. I had designed a Man pattern incision to perform a mastopexy and including removal of the nipple to allow for redraping of the skin for her reconstruction and achieve a reasonably symmetric reconstruction to her right breast. I proceeded with using a 10 blade scalpel to de epithelialize a 12 cm wide inferior pedicle up to the nipple-areolar complex. I made my other skin incisions consistent with a Man pattern reduction and then with the assistance of Dr. demarco proceeded with elevating the skin flaps and assisting Dr. Demarco in performing the left total mastectomy. After Dr. Demarco completed the mastectomy and it was noted the skin flaps appeared viable., I irrigated the pocket with antibiotic irrigation and achieved hemostasis with bovie cautery. I proceeded with sewing in a piece of large, contoured perforated alloderm along the IMF and anterior axillary line with 2-0 vicryl to help provide support and protection for the implant. Various silicone breast sizers were used and it was determined that [id number] implant would be appropriate to match patients right breast A 10 flat Etd drain and on Q pump catheter was then placed in the left breast pocket. I then prepped the skin with Betadine. New towels were placed. Changed gloves and rinsed instruments and antibiotic irrigation.I took a rikye [id number] implant directly from the package after rinsing in abx irrigation and placed it in the prepec, suballoderm pocket and immediately closed t-junction with 2-0 prolene. 3-0 vicryl was used for dermis and to tack the de-epithelialized inferior pedicle up over the implant as well. 4-0 monocryl was used for subcuticular closure. Next my attention to the right breast where I used a saline moistened lap pad and Michelle clamp to create a breast tourniquet. 38 mm nipple Sizer was used to circumscribe the nipple-areolar complex. I proceeded with making these incisions with 15 blade scalpel and de epithelializing a 9 cm wide inferior pedicle. Mm pattern skin incisions and then proceeded with using Bovie electrocautery to raise the skin flaps to expose entire breast tissue down to the chest wall. this was done and compressed plane. A presumed with resection of 67.5 g of tissue which allowed reasonable symmetry to the reconstructed left breast. I plicated the pedicle with 2-0 Vicryl suture. I irrigated with normal saline and hemostasis with Bovie electrocautery. 2-0 Prolene suture was used for the T junction. 3-0 Vicryl suture was used for dermal closure. The nipple was brought out at 5 cm above the inframammary fold at the most prominent portio
--- NOTE | 2023-08-14 08:26 | WPDANESEPP ---
Anes - Eval Pre Procedure Procedure: Operation Date: 08/14/23 08:30 Proposed Procedures p Left Total Non-Nipple Sparing Mastectomy, Left Axillary Homer Lymph Node Biopsy with Lymphoseek Injection, - Rere Demarco MD s Left Breast Pre-Pectoral Silicone Implant with Acellular Dermal Matrix Placement, Possible Wire-Patter Incision, Symmetrizing Right Breast Reduction - Cooper Franks MD Date/Time: 08/14/23 08:26 Pre Op Diagnosis: left breast CA Patient Data Age: 63 Gender: F Height: 1.6 m Weight: 97.7 kg Last Vital Signs Temp 97.7 F 08/14/23 07:00 Pulse 83 08/14/23 07:00 Resp 18 08/14/23 07:00 BP 149/78 H 08/14/23 07:00 Pulse Ox 100 08/14/23 07:00 O2 Del Method Room Air 08/14/23 07:00 Allergies Allergy/AdvReac Type Severity Reaction Status Date / Time acetaminophen [From Tylenol] Allergy Hives Verified 08/14/23 07:54 Sulfa (Sulfonamide Allergy Rash Verified 08/14/23 07:54 Antibiotics) Home Medications Medication Instructions Recorded Confirmed Type ascorbic acid (vitamin C) 500 mg 1,000 mg PO DAILY 04/28/23 08/14/23 History capsule aspirin 81 mg chewable tablet 81 mg PO HS 04/28/23 08/11/23 History calcium citrate 1,000 mg tablet 1,000 mg PO DAILY 04/28/23 08/14/23 History cholecalciferol (vitamin D3) 125 300 mcg PO DAILY 04/28/23 08/14/23 History mcg (5,000 unit) capsule cinnamon bark 500 mg capsule 500 mg PO DAILY 04/28/23 08/14/23 History (Cinnamon) omega-3 fatty acids-fish oil 360 1 cap PO DAILY 04/28/23 08/14/23 History mg-1,200 mg capsule (Fish Oil) vitamin B complex (B 1 tablet PO DAILY 04/28/23 08/14/23 History Complex-Vitamin B12 tablet) flaxseed 1 cap DAILY 07/08/23 08/14/23 History multivitamin 1 tablet PO DAILY 07/08/23 08/14/23 History tumeric 100 mg-lavern 150 mg-olive 1 cap PO DAILY 07/08/23 08/14/23 History 50 mg-oreg 150 mg-caprylate capsule vitamin E 1 cap DAILY 07/08/23 08/14/23 History tramadol 50 mg tablet 50 mg PO Q6H PRN pain #8 tabs 07/14/23 08/11/23 Rx cephalexin 500 mg capsule 500 mg PO Q8H #21 caps 08/14/23 Rx tramadol 50 mg tablet 50 mg PO Q6H PRN pain #12 tabs 08/14/23 Rx Patient hx anesthesia problems: none Family hx anesthesia problems: none Results Review: All pre-operative results and documents have been reviewed as part of the pre-operative evaluation. [facility] Past Medical History Medical History Abnormality of left breast on screening mammogram Arthritis Ductal carcinoma in situ (DCIS) of left breast Obesity Paget disease of breast Snoring never tested for BHAVANA Tonsil stone has one q6 weeks, last 3 weeks ago Surgical History Surgical History H/O colonoscopy History of section Family History Family History Father Pancreatic cancer Hypertension Grandparent Breast cancer Pancreatic cancer Social History Social History Smoking status: Never smoker Second hand tobacco smoke exposure: No Alcohol intake: current Drinks per week: 1 Alcohol use details: WINE ON SUNDAYS WITH COMMUNION Substance use: never Substance use type: does not use Lack of Transportation: No Lack of Food: Never True Current Housing: I Have Housing Concerned About Future Housing: No Difficulty Paying Gas/Electric Bills: No Difficulty Paying for Meds: No Currently Unemployed: No Education: High School Diploma/GED Difficulty w/ Childcare or Family Care: No Living arrangements: with family Gender identity (if verbalized by the patient): Female Spiritual care concerns: No Exam Day of Procedure 08/14/23 08:26 Patient weight: obese Heart: regular rate and rhythm Lungs: clear to auscultation Airway: Mallampati scale class II Neurological: alert and oriente
--- NOTE | 2023-08-14 08:31 | P.PNAN_ITS ---
Anes - Eval Final PreProcedure Day of Procedure 08/14/23 08:31 Patient weight: normal Heart: regular rate and rhythm Lungs: clear to auscultation Neurological: alert and oriented Last oral intake: >/= 8 hours ASA classification: III Emergent: no Anesthetic plan: proceed Anesthesia type and monitoring: general and standard monitoring Results Review: All pre-operative results and documents have been reviewed as part of the pre- operative evaluation. Informed Consent: The patient's anesthetic plan and its attendant risks and benefits were discussed with the patient/family/POA. Questions were solicited and answers provided to the satisfaction of the patient/family/POA.
[2023-08-14] MEDS: ceFAZolin 2 GM/D5W 50 ML 2 GM/50 ML BAG IVPB (08:53)
[2023-08-14] MEDS: ceFAZolin SODIUM 1 GM VIAL (09:11)
[2023-08-14] MEDS: METHYLENE BLUE 0.5% INJ 10 ML AMPULE 20 ML IRRIGATION (09:15)
[2023-08-14] MEDS: LIDO 1%/EPINEPHRINE 1:100,000 20 ML VIAL 30 ML INFILTRATE (09:24)
--- NOTE | 2023-08-14 11:44 | W.PM.PROC2 ---
Procedure Note - Detailed Date of Procedure 08/14/23 Pre-op Diagnosis Left breast multifocal high grade ductal carcinoma in situ Paget's disease of the left breast Post-op Diagnosis Same Procedure Performed 1. Left total non nipple sparing mastectomy - CPT 89149 2. Injection of diluted methylene blue dye - CPT 88398 3. Left axillary sentinel lymph node biopsy - CPT 06515 39668 - RT, 80 - assist closure of right reduction mammoplasty Surgeon Rere Demarco MD Sap Functional Analyst Cooper Franks MD Anesthesia General Indications 63-year-old female who underwent a left lumpectomy for left breast high-grade DCIS.? Intraoperative biopsy of the nipple showed involvement of the epithelium with tumor cells which is consistent with Paget's disease.? Patient also had small foci noted on the posterior and medial margin consistent with positive margins as well as multifocal extensive disease.? After options were reviewed with the patient as well as recommendation of treatment for Paget's disease, which entails bloc excision of the nipple-areolar complex,? with strong recommendation for a total mastectomy specially in the setting of multifocal extensive high-grade DCIS such as in her case. Patient elected to proceed with left total mastectomy, with sentinel lymph node biopsy, immediate reconstruction with silicone implant, and contralateral right breast oncoplastic reduction. ? Description of Procedure Patient was identified in the pre-operative area and brought to the OR suite. She underwent lymphoseek injection in Nuclear Medicine prior to presenting to pre-operative area. She was laid supine in the operating table and sequential compression devices were applied. General anesthesia was induced without difficulties. Bilateral chest areas and left axilla were prepped and draped in a sterile fashion. The gamma probe was used to scan the left axilla to find the area of highest radioactivity and a small incision was made overlying this area. Dissection was carried down through the subcutaneous tissue and the clavipectoral fascia was encountered and incised. The gamma probe was used to identify a lymph node that was both hot and blue. This was carefully excised using the LigaSure device. The gamma probe was used to obtain the following count for sentinel lymph node 1, 2500. The node was sent to pathology as a permanent specimen, the gamma probe was used to scan the axilla looking for the node was that at least 10% of the node #1. We were unable to identify any further nodes, and at this point the axilla was irrigated and hemostasis was assured. The clavipectoral fascia was approximated with 3-0 vicryl in a running fashion. The deep dermal layer was then closed with interrupted 3-0 vicryl and a 4-0 monocryl in a subcuticular fashion. Attention was then turned to the left breast. Dr Franks had previously marked the coleman pattern incision, and this was made with a 15 blade. Dissection was carried down to the subcutaneous tissue until the thin areolar tissue plane was encountered.? This was then dissected superiorly to the inferior aspect of the clavicle, medially to the lateral aspect of the sternum, laterally to the latissimus dorsi, and inferiorly to the inframammary fold.? The breast tissue, along with the pectoralis fascia, the nipple areaola complex and bilateral lower skin pedicles were excised en bloc. The specimen was oriented with a short stitch superiorly and long stitch laterally, and sent to pathology as the fresh specimen.? Hemostasis was assured.?The case was then turned over to plastic surgery for immediate reconstruction with placement of silicone implant, please refer to Dr Franks operative note for further details.?Patient tolerated the procedure well with no immediate complications. Lizzette Wise PA-C was present and assisted with patient positioning and retraction throughout the case. Dr Franks assisted with exposure for the left breast mastectomy portion.
--- NOTE | 2023-08-14 12:20 | SUR.OPER ---
ON q PAIN PUMP PER PHARMACY 270ML/2ML/HR LOT [id number], EXP 2024-09-08.
[2023-08-14] MEDS: fentaNYL CITRATE INJ (*CRX) 100 MCG/2 ML VIAL 25 MCG IV PUSH ×4 (12:26→13:31)
--- NOTE | 2023-08-14 12:57 | SUR.PHASEI ---
1253: Simple mask removed.
[2023-08-14] MEDS: hydrALAZINE HCL 20 MG/ML VIAL 5 MG IV PUSH ×2 (13:25→13:53)
[2023-08-14] MEDS: oxyCODONE HCL (*CRX) 5 MG TAB IR PO (15:10)
--- NOTE | 2023-08-14 15:33 | SUR.PHASEII ---
MD Demarco contacted to ask if scopalamine patch is ok. Ok to give per .
[2023-08-14] MEDS: SCOPOLAMINE 1.5 MG PATCH TRANSDERM (15:40)
== END 2023-08-14 16:10 | disposition home or self-care (01) ==
PROVIDERS: Plastic Surgery; PCP Family Medicine; Visit Provider Surgery
PROC: (CPT 19303; principal; 2023-08-14 08:30)
PROC: (CPT 15777; 2023-08-14 08:30)
DX: D05.12 Intraductal carcinoma in situ of left breast (principal); C50.012 Malignant neoplasm of nipple and areola, left female breast; Z79.82 Long term (current) use of aspirin; E66.9 Obesity, unspecified; Z68.38 Body mass index [BMI] 38.0-38.9, adult
CPT/HCPCS: 19340; 15777; 19318; 19303; 38525; 36415; 38792; 86850; 86900; 86901; 88305; 88307; A9270; A9520; C1713; J0360; J0690; J1100; J1170; J1580; J2250; J2371; J2405; J2704; J3010; J7120; Q9968

== ENCOUNTER 2023-09-26 08:30 | Outpatient (CLI) | payer MEDICARE, SELFPAY ==
[2023-09-26 08:46] LABS: Basophils Absolute Auto 0.1 K/mm3 (0.0-0.1); Basophils Percent Auto 1.4 % (0.2-1.2); Eosinophils Absolute Auto 0.2 K/mm3 (0-0.3); Eosinophils Percent Auto 3.8 % (0-4.4); Hemoglobin 13.4 g/dL (12.0-15.0); Immature Granulocyte Absolute 0.01 K/mm3 (0.00-0.031); Immature Granulocyte Percent A 0.2 % (0-0.5); Lymphocytes Absolute Auto 1.73 K/mm3 (0.9-3.2); Lymphocytes Percent Auto 29.7 % (18.3-44.2); Mean Corpuscular HGB Conc 33.5 g/dl (32-36); Mean Corpuscular Hemoglobin 32.2 pg (26-34); Mean Corpuscular Volume 96.2 fl (80-100); Mean Platelet Volume 9.5 fl (7.4-10.4); Monocytes Absolute Auto 0.9 K/mm3 (0.1-0.6); Monocytes Percent Auto 14.9 % (2.6-8.5); Neutrophils Absolute Auto 2.9 K/mm3 (1.3-6.7); Platelet Count Result 290 k/mm3 (150-375); Red Blood Count 4.16 M/mm3 (4.2-5.4); Red Cell Distribution Width 13.6 % (11.5-14.5); White Blood Count 5.8 K/mm3 (4.5-10.0)
[2023-09-26 09:42] LABS: Alanine Aminotransferase 22 U/L (6-35); Albumin Level 4.3 g/dL (3.5-5.1); Alkaline Phosphatase 70 U/L (38-126); Anion Gap 7 mmol/L (8-16); Aspartate Amino Transferase 41 U/L (14-36); Bilirubin,Total 1.2 mg/dL (0.2-1.3); Blood Urea Nitrogen 21 mg/dL (7-17); Calcium 9.8 mg/dL (8.4-10.2); Carbon Dioxide 30 mmol/L (22-30); Chloride 103 mmol/L (98-107); Estimated Glomerular Filt Rate > 60; Glucose 114 mg/dL (65-110); Potassium 4.5 mmol/L (3.4-5.0); Sodium 140 mmol/L (137-145)
== END 2023-09-26 08:31 | disposition home or self-care (01) ==
LOC: ANHLAB 08:31
PROVIDERS: PCP Family Medicine; Visit Provider Internal Medicine Hematology & Oncology
DX: D05.12 Intraductal carcinoma in situ of left breast (principal)
CPT/HCPCS: 36415; 80053; 85025

== ENCOUNTER 2024-01-02 08:30 | Outpatient (CLI) | payer MEDICARE, SELFPAY ==
[2024-01-02 08:48] LABS: Basophils Absolute Auto 0.1 K/mm3 (0.0-0.1); Basophils Percent Auto 1.2 % (0.2-1.2); Eosinophils Absolute Auto 0.2 K/mm3 (0-0.3); Eosinophils Percent Auto 2.6 % (0-4.4); Hematocrit 39.2 % (37.0-47.0); Hemoglobin 13.5 g/dL (12.0-15.0); Immature Granulocyte Absolute 0.02 K/mm3 (0.00-0.031); Immature Granulocyte Percent A 0.3 % (0-0.5); Lymphocytes Absolute Auto 1.78 K/mm3 (0.9-3.2); Lymphocytes Percent Auto 29.3 % (18.3-44.2); Mean Corpuscular HGB Conc 34.4 g/dl (32-36); Mean Corpuscular Hemoglobin 32.8 pg (26-34); Mean Corpuscular Volume 95.1 fl (80-100); Mean Platelet Volume 9.9 fl (7.4-10.4); Monocytes Absolute Auto 0.7 K/mm3 (0.1-0.6); Monocytes Percent Auto 11.7 % (2.6-8.5); Neutrophils Absolute Auto 3.3 K/mm3 (1.3-6.7); Neutrophils Percent Auto 54.9 % (45.5-73.1); Platelet Count Result 242 k/mm3 (150-375); Red Blood Count 4.12 M/mm3 (4.2-5.4); Red Cell Distribution Width 13.1 % (11.5-14.5); White Blood Count 6.1 K/mm3 (4.5-10.0)
[2024-01-02 08:54] LABS: Blood Urea Nitrogen 15 mg/dL (8-26); Carbon Dioxide 27 mmol/L (22-30); Chloride 104 mmol/L (98-109); Estimated Glomerular Filt Rate > 60; Glucose 108 mg/dL (70-105); Ionized Calcium (POC) 1.24 mmol/L (1.11-1.31); Potassium 4.4 mmol/L (3.5-4.9); Sodium 142 mmol/L (138-146)
[2024-01-02 11:51] LABS: Alanine Aminotransferase 18 U/L (6-35); Albumin Level 4.3 g/dL (3.5-5.1); Alkaline Phosphatase 53 U/L (38-126); Anion Gap 6 mmol/L (4-12); Aspartate Amino Transferase 22 U/L (14-36); Bilirubin,Total 0.6 mg/dL (0.2-1.3); Blood Urea Nitrogen 16 mg/dL (7-17); Calcium 9.8 mg/dL (8.4-10.2); Carbon Dioxide 28 mmol/L (22-30); Chloride 106 mmol/L (98-107); Estimated Glomerular Filt Rate > 60; Glucose 104 mg/dL (65-110); Potassium 4.4 mmol/L (3.4-5.0); Sodium 140 mmol/L (137-145)
== END 2024-01-02 08:31 | disposition home or self-care (01) ==
PROVIDERS: PCP Family Medicine; Visit Provider Internal Medicine Hematology & Oncology
DX: D05.12 Intraductal carcinoma in situ of left breast (principal)
CPT/HCPCS: 36415; 80047; 80053; 85025

== ENCOUNTER 2024-04-30 10:20 | Outpatient (CLI) | payer MEDICARE, SELFPAY ==
--- NOTE | ~2024-04-30 | MMUS_ITS ---
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 Status post right breast reduction in left. Weight loss. TECHNIQUE: Additional 3-D tomosynthesis images of the right breast were performed and synthetic 2-D i mages were generated. CAD analysis was submitted and interpreted. High resolution complete right nicolette st ultrasound was performed. COMPARISON: Comparison to multiple prior studies sequentially, with oldest reviewed study dated 12/24. BREAST PARENCHYMAL COMPOSITION: Not dense: There are scattered areas of fibroglandular density. FINDINGS: MAMMOGRAPHIC FINDINGS: There are no suspicious masses, calcifications or architectural distortion in the right breast to sug gest malignancy. There are changes of right breast reduction surgery. ULTRASOUND: Complete US of all 4 quadrants of the breast/s and retroareolar region was reviewed. At 12:00, 2 cm f rom the nipple there is a partially cystic heterogeneous 7 mm mass with ill-defined margins, likely f ocal area of fat necrosis. At 8:00, 6 cm from the nipple there is a 5 mm complicated cyst. At 10:00, 7 cm from the nipple there is a 1.3 cm cyst. In the subareolar location there is an oval circumscribe d parallel oriented hypoechoic 9 mm mass with echogenic hilum, likely an intramammary lymph node. IMPRESSION: 1. Probable benign findings of the right breast. 2. Recommend 6 month follow-up diagnostic right mammogram and Limited right breast ultrasound BI-RADS category 3, probably benign findings. Reviewed, dictated and finalized at location B. IMPRESSION: 1. Probable benign findings of the right breast. 2. Recommend 6 month follow-up diagnostic right mammogram and Limited right kaitlyn ast ultrasound BI-RADS category 3, probably benign findings. IMPRESSION: 1. Probable benign findings of the right breast. 2. Recommend 6 month follow-up diagnostic right mammogram and Limited right akitlyn ast ultrasound BI-RADS category 3, probably benign findings.
== END 2024-04-30 10:21 | disposition home or self-care (01) ==
LOC: ANHIMG 10:21
PROVIDERS: PCP Family Medicine; Visit Provider Surgery
DX: D05.12 Intraductal carcinoma in situ of left breast (principal); R92.8 Other abnormal and inconclusive findings on diagnostic imaging of breast; Z90.12 Acquired absence of left breast and nipple
CPT/HCPCS: 76641; 77061; 77065; G0279

== ENCOUNTER 2024-07-16 08:03 | Outpatient (CLI) | payer MEDICARE, SELFPAY ==
[2024-07-16 08:15] LABS: Basophils Absolute Auto 0.1 K/mm3 (0.0-0.1); Basophils Percent Auto 1.2 % (0.2-1.2); Eosinophils Absolute Auto 0.1 K/mm3 (0-0.3); Eosinophils Percent Auto 1.6 % (0-4.4); Hematocrit 42.4 % (37.0-47.0); Hemoglobin 14.4 g/dL (12.0-15.0); Immature Granulocyte Absolute 0.02 K/mm3 (0.00-0.031); Immature Granulocyte Percent A 0.3 % (0-0.5); Lymphocytes Absolute Auto 1.89 K/mm3 (0.9-3.2); Lymphocytes Percent Auto 28.1 % (18.3-44.2); Mean Corpuscular Hemoglobin 32.8 pg (26-34); Mean Corpuscular Volume 96.6 fl (80-100); Mean Platelet Volume 9.5 fl (7.4-10.4); Monocytes Absolute Auto 0.7 K/mm3 (0.1-0.6); Monocytes Percent Auto 10.3 % (2.6-8.5); Neutrophils Absolute Auto 3.9 K/mm3 (1.3-6.7); Neutrophils Percent Auto 58.5 % (45.5-73.1); Platelet Count Result 273 k/mm3 (150-375); Red Blood Count 4.39 M/mm3 (4.2-5.4); Red Cell Distribution Width 12.9 % (11.5-14.5); White Blood Count 6.7 K/mm3 (4.5-10.0)
[2024-07-16 08:21] LABS: Blood Urea Nitrogen 15 mg/dL (8-26); Carbon Dioxide 29 mmol/L (22-30); Chloride 105 mmol/L (98-109); Estimated Glomerular Filt Rate > 60; Glucose 120 mg/dL (70-105); Potassium 4.1 mmol/L (3.5-4.9); Sodium 141 mmol/L (138-146)
[2024-07-16 09:55] LABS: Alanine Aminotransferase 21 U/L (6-35); Albumin Level 4.4 g/dL (3.5-5.1); Alkaline Phosphatase 65 U/L (38-126); Anion Gap 8 mmol/L (4-12); Aspartate Amino Transferase 26 U/L (14-36); Bilirubin,Total 0.9 mg/dL (0.2-1.3); Blood Urea Nitrogen 17 mg/dL (7-17); Calcium 9.8 mg/dL (8.4-10.2); Carbon Dioxide 29 mmol/L (22-30); Chloride 102 mmol/L (98-107); Estimated Glomerular Filt Rate > 60; Glucose 118 mg/dL (65-110); Potassium 4.2 mmol/L (3.4-5.0); Sodium 139 mmol/L (137-145)
== END 2024-07-16 08:04 | disposition home or self-care (01) ==
LOC: ANHLAB 08:04
PROVIDERS: PCP Family Medicine; Visit Provider Internal Medicine Hematology & Oncology
DX: D05.12 Intraductal carcinoma in situ of left breast (principal)
CPT/HCPCS: 36415; 80047; 80053; 85025

== ENCOUNTER 2024-10-26 10:34 | Outpatient (CLI) | payer MEDICARE, SELFPAY ==
--- NOTE | ~2024-10-26 | MM_ITS ---
EXAMINATION: MM diagnostic bebe RT w jake HISTORY: Status post left mastectomy, prior right reduction mammoplasty TECHNIQUE: 3-D tomosynthesis images of the right breast were performed and synthetic 2-D images were generated. CAD analysis was submitted and interpreted. COMPARISON: 04/30/2024, 04/21/2023, 06/14/2022 BREAST PARENCHYMAL COMPOSITION:Not Dense. There are scattered areas of fibroglandular density. FINDINGS: Stable parenchymal pattern of the right breast. No suspicious mass lesion or distortion. No suspicious microcalcification. IMPRESSION: No mammographic evidence for malignancy. BI-RADS Category 1: Negative Reviewed, dictated and finalized at location . T METAL TECHNICIAN
--- OUTSIDE RECORDS SUMMARY | 2024-10-26 12:24 | XMS_ITS | Clinical Summary ---
Author Organization [facility] Address Formerly [facility] [place] [address] Care Team Providers Care Route Contractor Name Role Phone Santi Rodriguez MD Primary Care Provider [phone] Allergies Active Allergy Reactions Criticality Noted Date Comments Acetaminophen Eyes Water & Itch,Hives,Itching Medium 1 Kiwi Fruit Throat swelling 05/23/2022 Sulfa Antibiotics Hives,Itching,Rash Low 05/23/2022 Medications aspirin EC (ECOTRIN) 81 MG tablet Take 1 tablet (81 mg total) by mouth daily. Active B Zaonacn-C-Geidb Acid (RENAL) 1 MG Cap Take 1 capsule by mouth daily. Active vitamin D3, cholecalciferol , 1000 UNIT Tab tablet Take 1 tablet (1,000 Units total) by mouth daily. Active ibuprofen (MOTRIN) 200 MG tablet Active Multiple Vitamins-Minera ls (ONCOVITE) Tab Take 1 tablet by mouth daily. Active fish oil (OMEGA-3 FATTY ACID) 1000 MG Cap capsule Take by mouth daily. Active vitamin E 400 UNIT capsule Take 1 capsule (400 Units total) by mouth daily. Active Flaxseed, Linseed, (FLAX SEED OIL) 1000 MG capsule Take 1,000 mg by mouth daily. Active tamoxifen (NOLVADEX) 20 MG tablet Take 1 tablet by mouth daily. 09/26/2023 Active vitamin C (ASCORBIC ACID) 500 MG tablet Take 1 tablet (500 mg total) by mouth. Active vitamin B-12 (CYANOCOBALAMIN ) 500 MCG tablet Take 1 tablet (500 mcg total) by mouth daily. Active calcium citrate-vitamin D 315 mg-6.25 mcg 315-6.25 MG-MCG Tab tablet Take by mouth daily. Active methylPREDNISol one, KINGS, (MEDROL DOSEPAK) 4 MG tabletIndicatio ns:COVID-19 Take 1 tablet (4 mg total) by mouth daily. 6 TABLETS ON DAY ONE, 5 TABLETS DAY TWO, 4 TABLETS DAY THREE, 3 TABLETS DAY FOUR, 2 TABLETS DAY FIVE, AND 1 TABLET DAY SIX 1 each 02/20/2024 Active amoxicillin (AMOXIL) 500 MG capsule TAKE 4 PILLS 1 HOUR BEFORE DENTAL APPOINTMENT. 10/04/2024 Active Active Problems Problem Noted Date Diagnosed Date Hyperlipidemia 02/18/2024 Osteoarthritis of right hip 12/15/2023 Encounters Date Type Department Care Team Description 10/09/2024 12:40 PM SENIOR ACCOUNTING ASSOCIATE Office Visit [address] [phone] Ingrid Kat, SEBAS Sore Throat; Cough (Started ); Fever; Headache 10/09/2024 Travel 09/03/2024 12:35 PM SENIOR ACCOUNTING ASSOCIATE - 09/03/2024 11:59 PM SENIOR ACCOUNTING ASSOCIATE Hospital Encounter [facility] [id number] [place], [place] [id number] Nura Kaplan PA Discharge Disposition: Home or Self Care (Routine Discharge) 09/03/2024 11:40 AM SENIOR ACCOUNTING ASSOCIATE Office Visit [facility] Family & Internal Medicine [address] [address] Nura Kaplan PA UTI (Pt c/o painful urination on 09/01/Pt used OTC test, and taking OTC Uqora) 09/03/2024 Travel from Last 3 Months Family History Medical History Relation Comments Arthritis Father Hands Cancer Father Skin Hyperlipidemia Father Arthritis Mother Spine COPD Mother Cancer Mother Pancreatic, skin Diabetes Mother Hyperlipidemia Mother Hypertension Mother Relation Status Comments Father Mother Social History Tobacco Use Types Packs/Day Years Used Date Smoking Tobacco: Never Passive Smoke Exposure: Never Smokeless Tobacco: Never Tobacco Cessation:Counseling Given: No Alcohol Use Standard Drinks/Week Comments Never 0 (1 standard drink = 0.6 oz pur e alcohol) PHQ-2 Answer Date Recorded Patient Health Questionnaire-2 Score 0 09/03/2024 Comments No Sex and Gender Information Value Date Recorded Sex Assigned at Female 10/09/2024 12:14 PM SENIOR ACCOUNTING ASSOCIATE Legal Sex Female 3:15 PM CDT Gender Identity Not on file Sexual Orientation Not on file Last Filed Vital Signs Vital Sign Reading Time Taken Comments Blood Pressure 131/83 10/09/2024 12:31 PM SENIOR ACCOUNTING ASSOCIATE Pulse 100 10/09/2024 12:31 PM SENIOR ACCOUNTING ASSOCIATE Temperature 37.1 C (98.7 F) 10/09/2024 12:31 PM SENIOR ACCOUNTING ASSOCIATE Respiratory Rate 14 10/09/2024 12:31 PM SENIOR ACCOUNTING ASSOCIATE Oxygen Saturation 98% 10/09/2024 12:31 PM SENIOR ACCOUNTING ASSOCIATE Inhaled Oxygen Concentration - - Weight 86.5 kg (190 lb 9.6 oz) 10/09/2024 12:31 PM SENIOR ACCOUNTING ASSOCIATE Height 159.4 cm (5' 2.75 ) 10/09/2024 12:[address] Body Mass Index 34.03 10/09/2024 12:31 PM SENIOR ACCOUNTING ASSOCIATE Plan of Treatment Upcoming Encounters Date Type Department Care Team (Late st Contact Info) Description 11/26/2024 1:40 PM CDT Office Visit [facility] [address] [address] Lu Rodriguez NP [address] [address] Health Maintenance Due Date Last Done Comments Colorectal Cancer Screening Colonoscopy (10 Years) 1958 Hepatitis C 1976 DTaP, Tdap and Td Vaccines (1 - Tdap) 1977 Zoster Vaccines (1 of 2) 2008 Annual Medicare Wellness Visit 2023 Pneumococcal Vaccine: 65+ Years (1 of 1 - PCV) 2023 COVID-19 Vaccine (4 - season) 2024 03/24/2022, 12/05/2020, 11/10/2020 Influenza Adult (#1) 2024 Mammogram Screening 04/30/2026 04/30/2024, 07/14/2023, 06/11/2023, Additional history exists RSV Immunization or 60+ Years (1 - 1-dose 75+ series) 2033 Dexa Scan (General) Completed 05/31/2021, PHQ-2 (Physician [place]) Completed 09/03/2024 Meningococcal B Vaccine Aged Out No l onger eligible based on patient's age to complete this topic Meningococcal Vaccine Aged Out No eliseo tiffany eligible based on patient's age to complete this topic RSV Immunizations Under 20 Months Aged Out No longer eligible based on patient's age to complete this topic Procedures Procedure Name Priority Date/Time Associated Diagnosis Comments STREP A RAPID Routine 10/09/2024 Influenza A CORONAVIRUS (COVID-19) INFLUENZA A & B ANTIGEN IA PANEL Routine 10/09/2024 Influenza A URINE BACTERIA CULTURE Routine 09/03/2024 12:08 PM SENIOR ACCOUNTING ASSOCIATE UTI symptoms URINALYSIS AUTO DIP Routine 09/03/2024 UTI symptoms MAMMOGRAM GENERIC (SCAN ORDER) 04/30/2024 BONE DENSITY GENERIC (SCAN ORDER) 05/31/2021 from Last 3 Months or Most Recently Relevant to Health Maintenance Results * (ABNORMAL) CORONAVIRUS (COVID-19) INFLUENZA A & B ANTIGEN IA PANEL (10/09/2024) CORONAVIRUS ANTIGEN IA NEGATIVE NEGATIVE MG-POKAGON ÁNGELA (9401), RAY INFLUENZA A POSITIVE(A) NEGATIVE MG-HOL Y CROSS ÁNGELA (9401), RAY INFLUENZA B NEGATIVE NEGATIVE MG-PO[place] ÁNGELA (9401), RAY Internal Control: VALID VALID MG-POK[place]ON ÁNGELA (9401), RAY NASAL STRUCTURE / Unknown 10/09/2024 us Ingrid Kat NP MICROBIOLOGY - GENERAL ORDERABL ES Final Result MG-POKAGON ÁNGELA (9401), RAY [address] [facility] [address] [place] [id number], [place] [phone] * STREP A RAPID (10/09/2024) RAPID STREP TEST NEGATIVE NEGATIVE -LINDY MOTTA (9488), RAY Internal Control: VALID VALID -LINDY MOTTA (9477), RAY STRUCTURE OF ANTERIOR PORTION OF NECK / Unknown 10/09/2024 Ingrid Kat NP MICROBIOLOGY - GENERAL ORDERABL ES Final Result -LINDY MOTTA (9475), RAY 9401 LINDY MOTTA [facility] [address] [place] [address], [place] [phone] * (ABNORMAL) URINE BACTERIA CULTURE (09/03/2024 12:08 PM SENIOR ACCOUNTING ASSOCIATE) SPEC DESCRIPTION URINE CLEAN CATCH 09/03/2024 12:35 PM SENIOR ACCOUNTING ASSOCIATE [facility] SPECIAL REQUESTS NO SPECIAL REQUEST 09/03/2024 12:35 PM SENIOR ACCOUNTING ASSOCIATE [facility] CULTURE RESULT 50,000-100, 000 COL/ML ESCHERICHIA COLI (A) 09/05/2024 7:14 AM SENIOR ACCOUNTING ASSOCIATE [facility] URINE SPECIMEN OBTAINED BY CLEAN CATCH PROCEDURE / Unknown 09/03/2024 12:08 PM SENIOR ACCOUNTING ASSOCIATE 09/03/2024 12:39 PM SENIOR ACCOUNTING ASSOCIATE Narrative Organism Antibiotic Method Susceptibility Escherichia coli AMPICILLIN SY (VITEK) 4: Sensitive Escherichia coli AMPICILLIN/SULBACTAM SY (VITEK) <=2: Sensitive Escherichia coli CEFTRIAXONE SY (VITEK) <=1: Sensitive Escherichia coli CEFTAZIDIME SY (VITEK) <=1: Sensitive Escherichia coli CEFAZOLIN SY (VITEK) <=4: Sensitive Escherichia coli ESBL SY (VITEK) NEG: Sensitive Escherichia coli NITROFURANTOIN SY (VITEK) <=16: Sensitive Escherichia coli GENTAMICIN SY (VITEK) <=1: Sensitive Escherichia coli LEVOFLOXACIN SY (VITEK) <=0.12: Sensitive Escherichia coli PIPRACIL/TAZO SY (VITEK) <=4: Sensitive Escherichia coli TRIMETH-SULFAMETH. SY (VITEK) <=20: Sensitive Nura PATHAK MICROBIOLOGY - GENERAL ORDERAB LES Final Result [facility] [address] [place] [address], [place] [phone] [facility] () [facility] [address] [place] [address], [place] [phone] * (ABNORMAL) URINALYSIS AUTO DIP (09/03/2024) COLOR (U) YELLOW YELLOW [id number], [place] TRANSPARENCY CLOUDY(A) CLEAR MG-[address], [place] GLUCOSE (U) NEGATIVE NEGATIVE MG/DL MG-[address], [facility] BILIRUBIN (U) NEGATIVE NEGATIVE MG-[address], [facility] KETONES MG/DL (U) NEGATIVE NEGATIVE MG/DL MG-[address], [facility] SPECIFIC GRAVITY (U) 1.020 1.001 - 1.035 MG-[address], [facility] BLOOD (U) TRACE (Non Hemolyzed, Intact)(A) NEGATIVE MG-[address], [place] U PH 6.0 5.0 - 9.0 MG-[address], [facility] PROTEIN (U) NEGATIVE NEGATIVE mg/dL MG-[address], [facility] UROBILINOGEN 0.2 0.2 - 1.0 EU/dL = mg/dL MG-[address], [facility] NITRITES NEGATIVE NEGATIVE MG/DL MG-[address], [facility] LEUKOCYTES (U) TRACE(A) NEGATIVE MG-[address], [place] URINE SPECIMEN OBTAINED BY CLEAN CATCH PROCEDURE / Unknown 09/03/2024 Nura PATHAK URINE ORDERABLES Final Result [id number], [facility] [address] [place] [address], [place] [phone] * MAMMOGRAM GENERIC (SCAN ORDER) (04/30/2024) Anatomical Region Laterality Modality Other 04/30/2024 us Doc Med Group Scanned SCANNING Final Resu lt * BONE DENSITY GENERIC (05/31/2021) Anatomical Region Laterality Modality Other 05/31/2021 Narrative 05/31/2021 Ordered by an unspecified provider. us Documents Scanned SCANNING Final Result from Last 3 Months or Most Recently Relevant to Health Maintenance Insurance [employer] Care Teams Route Contractor Relationship Specialty [place] [address] [place] [address] PCP - General FAMILY PRACTICE 03/27/22
--- OUTSIDE RECORDS SUMMARY | 2024-10-26 12:24 | XMS_ITS | Clinical Summary ---
Author Organization [facility] Address [address] [facility] [address] [place] [address] Phone Care Team Providers Care Precision Lens Grinder Name Role Phone Santi Rodriguez MD Primary Care Provide r Allergies Active Allergy Reactions Criticality Noted Date Comments Sulfa (Sulfonamide Antibiotics) Rash Low 06/01 Tylenol Cold And Flu Rash Low 06/13/2023 Medications cyanocobalamin (VITAMIN B-12) 500 mcg tablet Take 500 mcg by mouth daily. Active ascorbic acid (VITAMIN C) 500 mg Tablet, Chewable Take 500 mg by mouth. Active calcium citrate-vitamin d3 (CITRACAL D MAX) 315 mg-6.25 mcg (250 unit) Tablet Take by mouth daily. Active VITAMIN E ORAL Take by mouth. Active calcium citrate-vitamin d3 (CITRACAL D MAX) 315 mg-6.25 mcg (250 unit) Tablet Take by mouth daily. Active omega-3 fatty acids-fish oil 300-1,000 mg Capsule Take by mouth daily. Active Flaxseed Oil Oil by [facility].(Non-D rug; Combo Route) route. Active ajsvdtk-glhx-kfs vr-mqzm-rmgwae 100 mg-150 mg- 50 mg-150 mg Capsule Take by mouth. Active multivitamin (DAILY-BERLIN) tablet Take 1 Tablet by mouth daily. Active ibuprofen (MOTRIN) 200 mg tablet Take 200 mg by mouth every 6 hours as needed for Pain, Mild. Active tamoxifen (NOLVADEX) 20 mg tablet Take 1 Tablet (20 mg) by mouth daily. 90 Tablet 4 09/26/2023 Active Active Problems No known active problems Encounters Date Type Department Care Team Description 10/19/2024 External Device Data STL ABSTRACTION Provider, Abstract 09/22/2024 External Device Data STL ABSTRACTION Provider, Abstract 09/21/2024 External Device Data STL ABSTRACTION Provider, Abstract 09/15/2024 External Device Data STL ABSTRACTION Provider, Abstract 09/03/2024 Telephone [facility] Oncology and Hematology [facility] [address] [place] [address] Eddie Ramirez MD Follow-up on UTI symptoms from Last 3 Months Family History Medical History Relation Name Comments Heart Disease Mother Pancreatic Cancer Mother Relation Name Status Comments Daughter Alive Father Mother Sister Alive Social History Tobacco Use Types Packs/Day Years Used Date Smoking Tobacco: Never Smokeless Tobacco: Never Tobacco Cessation:Counseling Given: Not Answered Alcohol Use Standard Drinks/Week Comments Not Currently 0 (1 standard drink = 0.6 oz pur e alcohol) Comments Unknown Sex and Gender Information Value Date Recorded Sex Assigned at Female 09/25/2023 3:26 PM DECATOR OPERATOR Legal Sex Female 12:03 PM CDT Gender Identity Female 09/25/2023 3:26 PM DECATOR OPERATOR Sexual Orientation Straight 09/25/2023 3: 26 PM DECATOR OPERATOR Last Filed Vital Signs Vital Sign Reading Time Taken Comments Blood Pressure 150/83 07/16/2024 8:35 AM DECATOR OPERATOR Pulse 79 07/16/2024 8:30 AM DECATOR OPERATOR Temperature 36.6 C (97.8 F) 07/16/2024 8:30 AM DECATOR OPERATOR Respiratory Rate 15 07/16/2024 8:30 AM DECATOR OPERATOR Oxygen Saturation 98% 07/16/2024 8:30 AM DECATOR OPERATOR Inhaled Oxygen Concentration - - Weight 84.5 kg (186 lb 3.2 oz) 07/16/2024 8:30 A M DECATOR OPERATOR Height - - Body Mass Index - - Plan of Treatment Upcoming Encounters Date Type Department Care Team (Late st Contact Info) Description 01/14/2025 8:45 AM CDT Office Visit [facility] Oncology and Hematology [facility] [address] [place] [address] Karthik Valverde MD [address] [facility] [address] [place] [address] Health Maintenance Due Date Last Done Comments Pre-Diabetes and Diabetes Screening 1960 DTAP/TDAP/TD VACCINES (1 - Tdap) 1977 COLORECTAL SCREENING 2003 Colorectal Cancer Screening 2003 FIT-DNA Q 3 years 2003 FIT/FOBT Q 1 year 2003 Flex Sig/CT Colonography Q 5 years 2003 PNEUMOCOCCAL VACCINE 65+ YEA RS (1 of 1 - PCV) 2008 ZOSTER VACCINE (1 of 2) 2008 BREAST CANCER SCREENING 12/17/2017 12/17/2016, 12/05 INFLUENZA VACCINE (#1) 2024 RSV VACCINE (60+ or ) (1 - 1-dose 75+ series) 2033 OSTEOPOROSIS SCREENING Completed 05/31/2021 [place] [address] [employer] PPO MCR Care Teams Precision Lens Grinder Relationship Specialty [place] [address] [place] [address] PCP - General Family Practice 06/13/23
--- OUTSIDE RECORDS SUMMARY | 2024-10-26 12:24 | XMS_ITS | Patient Health Summary ---
Author Organization [facility] Address [address] [place] [address] Care Team Providers Care Upsetter Setter Up Name Role Phone Unavailable Primary Care Provider Unavailabl e Note from [facility],non-owned Affiliates and Associated Physician Practices is amultiple site organization consisting of ambulatory clinics and hospital sitesin [place], [place], [place] and [place]. This disclosure is being madepursuant to the Care Everywhere program and may not contain all information available regarding this patient. Last updated 18.[facility] Social History Tobacco Use Types Packs/Day Years Used Date Smoking Tobacco: Never Assessed Sex and Gender Information Value Date Recorded Sex Assigned at Not on file Gender Identity Not on file Sexual Orientation Not on file Procedures * DERMATOPATHOLOGY(Performed 03/22/2021) Results * DERMATOPATHOLOGY (03/22/2021 3:33 AM CDT) Case Report Dermatopathology Report Case: [id number] Authorizing Provider: Viral August MD Collected: 03/22/2021 03:33 AM Ordering Location: [facility] DermPath Lab Received: 03/26/2021 05:29 AM Pathologist: Ashanti Kruger MD Specimen: Skin, right cheek 4:04 PM CDT DERMATOPATHOLOGY LABORATORY Final Diagnosis Specimen A. SKIN, right cheek: VERRUCA VULGARIS, INFLAMED (B07.8) 4:04 PM CDT DERMATOPATHOLOGY LABORATORY Clinical History SK vs VV vs SCCA. Path# [id number]. 1 4:04 PM CDT DERMATOPATHOLOGY LABORATORY Gross Description Specimen A: Received is one formalin filled container labeled with the patient's name and designated right cheek. The specimen consists of a shave biopsy measuring [id number]. Jar 0. 1 4:04 PM CDT DERMATOPATHOLOGY LABORATORY Microscopic Description Specimen A. SKIN, right cheek: Sections show papillomatosis. Some of the cells within the granular layer show coarsened keratohyalin granules. Within the dermis, dilated vessels and a patchy lymphocytic infiltrate are present. 1 4:04 PM CDT DERMATOPATHOLOGY LABORATORY Disclaimer An external and internal positive and negative controls are appropriate for the histochemical, immunohistochemical and immunofluorescence stain(s) in this case (if any), except where stated explicitly. The performance characteristics of the stain(s) cited in this report were developed and its performance characteristic determined by the Dermatopathology Laboratory at [facility], directed by Dr. Zara Keys. These tests need not be, and therefore are not, approved by the [place] Food and Drug Administration. The tests are used for clinical purposes. Billing Codes Specimen Charges Stain Charges 47865 1 1 4:04 PM CDT DERMATOPATHOLOGY LABORATORY Embedded Images 4:04 PM CDT DERMATOPATHOLOGY LABORATORY Pathology/Cytolo gy TISSUE SPECIMEN FROM SKIN / Unknown 03/22/2021 3:33 AM CDT 03/26/2021 5:29 AM CDT Viral August MD LAB - PATHOLOGY/CYTO LOGY ORDERABLES DERMATOPATHOLOGY LABORATORY [facility] - Department of Dermatology [address], [address] [phone]
--- OUTSIDE RECORDS SUMMARY | 2024-10-26 12:24 | XMS_ITS | Encounter Summary ---
Author Organization [facility] Address [address] [place] [address] Care Team Providers Care Oriental Rug Stretcher Name Role Phone Unavailable Primary Care Provider Unavailabl e Encounter Details Date Type Department Care Team (Late st Contact Info) Description 03/26/2021 Lab Requisition [facility] DermPath Lab [address] [facility] [place] [phone] Viral August MD [address] [place] [address] Social History Tobacco Use Types Packs/Day Years Used Date Smoking Tobacco: Never Assessed Sex and Gender Information Value Date Recorded Sex Assigned at Not on file Gender Identity Not on file Sexual Orientation Not on file documented as of this encounter Plan of Treatment Not on file documented as of this encounter Procedures Procedure Name Priority Date/Time Associated Diagnosis Comments DERMATOPATHOLOGY Routine 03/22/2021 3:33 AM CDT documented in this encounter Results * DERMATOPATHOLOGY (03/22/2021 3:33 AM CDT) Case Report Dermatopathology Report Case: [id number] Authorizing Provider: Viral August MD Collected: 03/22/2021 03:33 AM Ordering Location: [facility] DermPath Lab Received: 03/26/2021 05:29 AM Pathologist: Ashanti Kruger MD Specimen: Skin, right cheek 4:04 PM CDT DERMATOPATHOLOGY LABORATORY Final Diagnosis Specimen A. SKIN, right cheek: VERRUCA VULGARIS, INFLAMED (B07.8) 4:04 PM CDT DERMATOPATHOLOGY LABORATORY Clinical History SK vs VV vs SCCA. Path# [id number]. 4:04 PM CDT DERMATOPATHOLOGY LABORATORY Gross Description Specimen A: Received is one formalin filled container labeled with the patient's name and designated right cheek. The specimen consists of a shave biopsy measuring [id number]. Jar 0. 4:04 PM CDT DERMATOPATHOLOGY LABORATORY Microscopic Description Specimen A. SKIN, right cheek: Sections show papillomatosis. Some of the cells within the granular layer show coarsened keratohyalin granules. Within the dermis, dilated vessels and a patchy lymphocytic infiltrate are present. 4:04 PM CDT DERMATOPATHOLOGY LABORATORY Disclaimer An external and internal positive and negative controls are appropriate for the histochemical, immunohistochemical and immunofluorescence stain(s) in this case (if any), except where stated explicitly. The performance characteristics of the stain(s) cited in this report were developed and its performance characteristic determined by the Dermatopathology Laboratory at [facility], directed by Dr. Zara Keys. These tests need not be, and therefore are not, approved by the [place] Food and Drug Administration. The tests are used for clinical purposes. Billing Codes Specimen Charges Stain Charges 33892 1 4:04 PM CDT DERMATOPATHOLOGY LABORATORY Embedded Images 4:04 PM CDT DERMATOPATHOLOGY LABORATORY Pathology/Cytolo gy TISSUE SPECIMEN FROM SKIN / Unknown 03/22/2021 3:33 AM CDT 03/26/2021 5:29 AM CDT Viral August MD LAB - PATHOLOGY/CYTO LOGY ORDERABLES DERMATOPATHOLOGY LABORATORY [facility] - Department of Dermatology [address] [place] [address], [facility] [phone] documented in this encounter Visit Diagnoses Not on filedocumented in this encounter
--- OUTSIDE RECORDS SUMMARY | 2024-10-26 12:24 | XMS_ITS | Referral Summary ---
Author Organization [facility] Address [facility] [place] [address] Care Team Providers Care Portfolio Director Name Role Phone Santi Rodriguez MD Primary Care Provider [phone]- [phone] Encounters Date Type Department Care Team Description 10/04/2024 Orders Only [facility] Orthopaedic Surgery [facility] Medical Office Building [address] [place] [address] Reid Owusu MD from Last 3 Months Allergies Active Allergy Reactions Criticality Noted Date Comments Kiwi Swelling Medium 05/23/2022 Sulfa (Sulfonamide Antibiotics) Hives Medium 10/0 10/2018 Tylenol Allergy Cmp Mult-Sx Nt Hives High 10/17 Acetaminophen Hives Medium 06/03/2019 Medications calcium citrate-vitamin D3 (CITRACAL WITH D) 315 mg-6.25 mcg (250 unit) per tabletIndications :supplement Take 1 tablet by mouth 2 (two) times a day Active cholecalciferol 25 mcg (1,000 unit) tabletIndications :supplement Take 1 tablet (1,000 Units total) by mouth 2 (two) times a day Active tamoxifen (NOLVADEX) 20 mg tabletIndications :prevention of breast cancer in high risk women Take 1 tablet (20 mg total) by mouth nightly Active aspirin 81 mg enteric coated tabletIndications :Myocardial Reinfarction Prevention Take 1 tablet (81 mg total) by mouth nightly HOLD AFTER SURGERY - MAY RESUME ONCE FINISHED WITH ELIQUIS 4 Active amoxicillin 500 mg tablet/capsuleInd ications:Prophyla xis, Medical TAKE 4 PILLS 1 HOUR BEFORE DENTAL APPOINTMENT. 12 tablet/capsul e 5 Active Active Problems Problem Noted Date Diagnosed Date Osteoarthritis of right hip, unspecified osteoarthritis type 04/02/2024 Hyperlipidemia 02/18/2024 Primary osteoarthritis of right hip 12/15/2023 Social History Tobacco Use Types Packs/Day Years Used Date Smoking Tobacco: Never Cigarettes Smokeless Tobacco: Never Tobacco Cessation:Counseling Given: Not Answered Alcohol Use Standard Drinks/Week Comments Never 0 (1 standard drink = 0.6 oz pur e alcohol) AUDIT-C Answer Date Recorded Q1: How often do you have a drink containing alc ohol? Never 04/02/2024 Q2: How many drinks containi ng alcohol do you have on a typical day when you are drinking? 1 or 2 04/02/2024 Q3: How often do you have six or more drinks on one occasion? Never 04/02/2024 Personal Safety Answer Date Recorded Have you ever been in or are you currently in a harmful physical or emotional relationship or is someone making you feel afraid or unsafe? 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 Not on file Not on file Last Filed Vital Signs Vital Sign Reading Time Taken Comments Blood Pressure 135/67 04/02/2024 3:00 PM CDT Pulse 76 04/02/2024 3:00 PM CDT Temperature 36.7 C (98.1 F) 04/02/2024 8:58 AM CDT Respiratory Rate 12 04/02/2024 3:00 PM CDT Oxygen Saturation 97% 04/02/2024 3:00 PM CDT Inhaled Oxygen Concentration - - Weight 88.5 kg (195 lb) 04/02/2024 7:52 AM CDT Height 162.6 cm (5' 4 ) 04/02/2024 7:52 AM CDT Body Mass Index 33.47 04/02/2024 7:52 AM CDT Plan of Treatment Not on file Medical Devices Implanted Type Area Development Manager Device Identifier Shelf Expiration Date Model / Serial / Lot [employer] Cup Empowr Acet System Hemispherical Cluster Hole 52mm 940-02-52f - [id number] Implanted:Qty: 1 on 04/02/2024 at [facility] Right: Hip [employer] 10/09/2029 940-02-52F / / [id number] [employer] Screw Empowr Acetabular Bone 35mm 940-00-035 - [id number] Implanted:Qty: 1 on 04/02/2024 at [facility] Right: Hip [employer] 08/08/2029 940-00-035 / / [id number] [employer] Screw Empowr Acetabular Bone 20mm 940-00-020 - [id number] Implanted:Qty: 1 on 04/02/2024 at [facility] Right: Hip [employer] 10/09/2029 940-00-020 / / [id number] [employer] Liner Empowr Acetabular System Neutral Hxe 36f 941--36f - [id number] Implanted:Qty: 1 on 04/02/2024 at [facility] Right: Hip [employer] 02/14/2029 941-01-36F / / [id number] [employer] Hip Imp Stem Fem H105-04-4078 - [id number] Implanted:Qty: 1 on 04/02/2024 at [facility] Right: Hip [employer] 01/30/2029 F927-51-61 03 / / [id number] [employer] 36mm Hip Neutral Head Femoral Biolox Delta Fmp System 400-03362 - [id number] Implanted:Qty: 1 on 04/02/2024 at [facility] Right: Hip [employer] 02/03/2029 400-03-362 / / [id number] [place] [id number] [place] CHOICE PRF [place] [facility] Advance Directives For more information, please contact: [phone] * Full Code (Latest Code Status on File) Date Activated Date Inactivated Comments 04/02/2024 1:10 PM 04/02/2024 8:52 PM Care Teams Portfolio Director Relationship Specialty [place] [address] [place] [address] PCP - General Family Practice 12/15/23
--- OUTSIDE RECORDS SUMMARY | 2024-10-26 12:24 | XMS_ITS | Clinical Summary ---
Author Organization [facility] Address [facility] [place] [address] Care Team Providers Care Radiology Special Procedure Tech Name Role Phone Santi Rodriguez MD Primary Care Provider +1- [phone] Allergies Active Allergy Reactions Criticality Noted Date [...] tablet (20 mg total) by mouth nightly 4 Active aspirin 81 mg enteric coated tabletIndications [...] 02/18/2024 Primary osteoarthritis of right hip 12/15/2023 Encounters Date Type Department Care Team Description 10/04/2024 Orders Only [facility] Orthopaedic Surgery [address] [facility] Medical Office Building [address] [place] [address] Reid Owusu MD from Last 3 Months Surgical History Surgery Date Site/Laterality Comments SECTION BREAST SURGERY 07/14/23 & 08/14/23 COLONOSCOPY Medical History Medical History Date Comments Arthritis 06/2019 Cancer (CMS/HCC) (HCC) 05/27/2023 Degenerative joint disease (DJD) of hip PONV (postoperative nausea and vomiting) following mastectomy Family History Medical History Relation Name Comments Arthritis Father Bael Heart attack Father Abel Heart disease Father Abel Hypertension Father Abel Rashes / Skin problems Father Abel Arthritis Mother Wilmetta COPD Mother Wilmetta Cancer Mother [place] Heart disease Mother [place] Hypertension Mother [place] Rashes / Skin problems Mother [place] Anesthesia problems Neg Hx Relation Name Status Comments Father Abel [place] age 89 Mother Wilmetta Social History Tobacco Use Types Packs/Day Years [...] 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 on file Not on file Obstetrics History Para Term AB IAB SAB Ectopic Multiple Livin g Live Births 1 1 1 1 1 Date Outcome GA Total Labor Labor/2nd/3rd Weight Sex Type Anes PTL Kendra A1 A5 Name Clin 11/11 Term F CS-LT ranv Living [place] Last Filed Vital Signs Vital Sign Reading [...] 04/02/2024 7:52 AM CDT Plan of Treatment Health Maintenance Due Date Last Done Comments Breast Cancer Screening-Mammogram 1960 Colon Cancer Screening-Colonoscopy 1960 Depression Screening 1958 Hepatitis C Screening 1958 DTaP/Tdap/Td Vaccine (1 - Tdap) 1969 Hepatitis B Screening 1976 Pneumococcal vaccine 65+ (1 of 2 - PCV) 1977 Zoster Vaccine (1 of 2) 1977 Osteoporosis Screening-Bone Density Scan 05/31/2023 05/31/2021 Well Visit 65+ 2023 Covid-19 Vaccine ( season) 2024 03/24/2022, 12/05/2020, 11/10/2020 Influenza Vaccine (#1) 2024 Fall Risk Assessment 04/02/2025 04/02/2024 Medical Devices Implanted Type Area Devil Tender Device Identifier Shelf Expiration Date Model / Serial / Lot [employer] Cup Empowr Acet System Hemispherical Cluster Hole 52mm 940-02-52f - [id number] Implanted:Qty: 1 on 04/02/2024 at [facility] Right: Hip [employer] 10/09/2029 940-02-52F / / [id number] [employer] Screw Empowr Acetabular Bone 35mm 940-00-035 - [id number] Implanted:Qty: 1 on 04/02/2024 at [facility] Right: Hip [employer] 08/08/2029 940-00-035 / / [id number] [employer] Screw Empowr Acetabular Bone 20mm 940-00-020 - [id number] Implanted:Qty: 1 on 04/02/2024 at [facility] Right: Hip [employer] 10/09/2029 940-00-020 / / [id number] [employer] Liner Empowr Acetabular System Neutral Hxe 36f 941-01-36f - [id number] Implanted:Qty: 1 on 04/02/2024 at [facility] Right: Hip [employer] 02/14/2029 941-01-36F / / [id number] [employer] Hip Imp Stem Fem J810-43-5377 - [id number] Implanted:Qty: 1 on 04/02/2024 at [facility] Right: Hip [employer] 01/30/2029 U550-14-02 03 / / [id number] [employer] 36mm Hip Neutral Head Femoral [employer] Delta Fmp System [id number] - [id number] Implanted:Qty: 1 on 04/02/2024 at [facility] Right: Hip [employer] 02/03/2029 400-03-362 / / [id number] Insurance [facility] [place] [phone] CHOICE [place] [facility] [employer] [facility] [employer] Advance Directives For more information, please contact: [phone] * Full Code (Latest Code Status on File) Date Activated Date Inactivated Comments 04/02/2024 1:10 PM 04/02/2024 8:52 PM Care Teams Radiology Special Procedure Tech Relationship Specialty [place] [address] [place], [place] [id number] PCP - General Family Practice 12/15/23
--- OUTSIDE RECORDS SUMMARY | 2024-10-26 12:24 | XMS_ITS | Referral Summary ---
Author Organization [facility] Address [address] [facility] [place] [address] Care Team Providers Care Deputy Head Name Role Phone Unavailable Primary Care Provider Unavailabl e Source Comments [facility],non-owned Affiliates and Associated Physician Practices is amultiple site organization consisting of ambulatory clinics and hospital sitesin [place], [place], [place] and [place]. This disclosure is being madepursuant to the Care Everywhere program and may not contain all information available regarding this patient. Last updated 18.[facility] [employer] Social History Tobacco Use Types Packs/Day Years Used Date Smoking Tobacco: Never Assessed Sex and Gender Information Value Date Recorded Sex Assigned at Not on file Gender Identity Not on file Sexual Orientation Not on file Plan of Treatment Not on file RIA GERMAN Personal/Family 1960 [address] [place] [address] RIA GERMAN Personal/Family Spouse [address] [place] [address] RIA GERMAN Personal/Family Spouse [address] [place] [address] RIA GERMAN Personal/Family Spouse [address] [place] [address] RIA GERMAN Personal/Family 1960 [address] [place] [address]
--- OUTSIDE RECORDS SUMMARY | 2024-10-26 12:24 | XMS_ITS | Clinical Summary ---
Author Organization [facility] Address [address] [place] [address] Care Team Providers Care Hairspring I Inspector Name Role Phone Unavailable Primary Care Provider Unavailabl e Source Comments [facility],non-owned Affiliates and Associated Physician Practices is amultiple site organization consisting of ambulatory clinics and hospital sitesin [place], [place], [place] and [place]. This disclosure is being madepursuant to the Care Everywhere program and may not contain all information available regarding this patient. Last updated 18.[facility] Social History Tobacco Use Types Packs/Day Years Used Date Smoking Tobacco: Never Assessed Sex and Gender Information Value Date Recorded Sex Assigned at Not on file Gender Identity Not on file Sexual Orientation Not on file Plan of Treatment Health Maintenance Due Date Last Done Comments BONE DENSITY TESTING 1960 COLOGUARD (AGES 45-75) - COL ON CA SCREENING 1958 COLON MONITORING 1958 COLONOSCOPY - COLON CA SCREENING 1958 CT COLONOGRAPHY - COLON CA SCREENING 1960 Colorectal Cancer Screening 1958 FIT - COLON CA SCREENING 1958 FLEX SIG - COLON CA SCREENING 1958 LIPID TESTING 1958 MAMMOGRAM 1958 HEPATITIS C SCREENING 06/09/1976 DTAP/TDAP/TD VACCINES (1 - Tdap) 1977 PNEUMOCOCCAL VACCINE 50+ (1 of 1 - PCV) 2008 ZOSTER VACCINE (1 of 2) 2008 COVID-19 VACCINE (1 - 2023-2 5 season) 2024 INFLUENZA VACCINE (#1) 2024 DEPRESSION SCREENING 09/01/2024 MEDICARE AWV CALENDAR YEAR 2024 Respiratory Syncytial Virus (RSV) Vaccine Pt: or over 60 yrs (1 - 1-dose 75+ series) 2033 HEPATITIS B VACCINE Aged Out No longe r eligible based on patient's age to complete this topic HIB VACCINE Aged Out No longer eligi ble based on patient's age to complete this topic HPV VACCINE Aged Out No longer eligi ble based on patient's age to complete this topic MENINGOCOCCAL (Group B) VACCINE Aged Out No longer eligible based on patient's age to complete this topic MENINGOCOCCAL VACCINE Aged Out No eliseo tiffany eligible based on patient's age to complete this topic RIA WANG Personal/Family 1960 [address] [place] [address] RIA WANG Personal/Family Spouse [address] [place] [address] RIA WANG Personal/Family Spouse [address] [place] [address] RIA WANG Personal/Family Spouse [address] [place] [address] RIA WANG Personal/Family [address] [place] [address]
== END 2024-10-26 10:35 | disposition home or self-care (01) ==
LOC: ANHIMG 10:34
PROVIDERS: PCP Family Medicine; Visit Provider Surgery
DX: C50.012 Malignant neoplasm of nipple and areola, left female breast (principal); Z90.12 Acquired absence of left breast and nipple; R92.8 Other abnormal and inconclusive findings on diagnostic imaging of breast; N63.15 Unspecified lump in the right breast, overlapping quadrants
CPT/HCPCS: 77061; 77065; G0279

== ENCOUNTER 2025-01-14 08:18 | Outpatient (CLI) | payer MEDICARE, SELFPAY ==
--- OUTSIDE RECORDS SUMMARY | 2025-01-14 08:24 | XMS_ITS | Clinical Summary ---
Author Organization [facility] Address [address] [facility] [address] [address] [place] [address] Phone Care Team Providers Care Bench Loom Weaver Name Role Phone Santi Rodriguez MD Primary [...] mouth daily. Active Flaxseed Oil Oil by [facility].(Non-D rug; Combo Route) route. Active klewaie-spsn-apx om-bhwq-mkxzms 100 mg-150 mg- 50 mg-150 mg Capsule Take by mouth. Active multivitamin (DAILY-BERLIN) tablet Take 1 Tablet by mouth daily. Active ibuprofen (MOTRIN) 200 mg tablet Take 200 mg by mouth every 6 hours as needed for Pain, Mild. Active tamoxifen (NOLVADEX) 20 mg tablet TAKE 1 TABLET BY MOUTH EVERY DAY 90 Tablet 3 12/13/2024 Active Active Problems No known active problems Encounters Date Type Department Care Team Description 12/11/2024 Refill [facility] Oncology and Hematology - [address] [place] [address] Karthik Valverde MD 11/17/2024 External Device Data STL ABSTRACTION Provider, Abstract 11/06/2024 External Device Data STL ABSTRACTION Provider, Abstract 11/05/2024 External Device Data STL ABSTRACTION Provider, Abstract 11/03/2024 External Device Data STL ABSTRACTION Provider, Abstract 11/02/2024 External Device Data STL ABSTRACTION Provider, Abstract 10/19/2024 External Device Data STL ABSTRACTION Provider, Abstract from Last 3 Months Family History Medical [...] Sex Assigned at Female 09/25/2023 3:26 PM LOAN AUDITOR Legal Sex Female 12:03 PM CDT Gender Identity Female 09/25/2023 3:26 PM LOAN AUDITOR Sexual Orientation Straight 09/25/2023 3: 26 PM LOAN AUDITOR Last Filed Vital Signs Vital Sign Reading Time Taken Comments Blood Pressure 150/83 07/16/2024 8:35 AM LOAN AUDITOR Pulse 79 07/16/2024 8:30 AM LOAN AUDITOR Temperature 36.6 C (97.8 F) 07/16/2024 8:30 AM LOAN AUDITOR Respiratory Rate 15 07/16/2024 8:30 AM LOAN AUDITOR Oxygen Saturation 98% 07/16/2024 8:30 AM LOAN AUDITOR Inhaled Oxygen Concentration - - Weight 84.5 kg (186 lb 3.2 oz) 07/16/2024 8:30 A M LOAN AUDITOR Height - - Body Mass Index - - Plan of Treatment Upcoming Encounters Date Type Department Care Team (Late st Contact Info) Description 01/14/2025 8:45 AM CDT Office Visit [facility] Oncology and Hematology - [address] [place] [address] Karthik Valverde MD [address] [facility] [address] [place] [address] Health Maintenance Due Date Last Done Comments Pre-Diabetes and Diabetes Screening 1958 DTAP/TDAP/TD VACCINES (1 - Tdap) 1977 COLORECTAL SCREENING 2003 Colorectal Cancer Screening 2003 FIT-DNA Q 3 years 2003 FIT/FOBT Q 1 year 2003 Flex Sig/CT Colonography Q 5 years 2003 PNEUMOCOCCAL VACCINE 50+ YEA RS (1 of 1 - PCV) 2008 ZOSTER VACCINE (1 of 2) 2008 BREAST CANCER SCREENING 12/17/2017 12/17/2016, 12/05 INFLUENZA VACCINE (#1) 2024 [place] ([place]) Prev entative Visit/Annual Wellness Visit 09/01/2024 02/03/2024, 05/23/2022, 10/17/2016 OSTEOPOROSIS SCREENING 05/31/2026 05/31/2021 RSV VACCINE (60+ or ) (1 - 1-dose 75+ series) 2033 [place] [address] Care Teams Bench Loom Weaver Relationship Specialty [place] [address] [place] [address] PCP - General Family Practice 06/13/23
--- OUTSIDE RECORDS SUMMARY | 2025-01-14 08:24 | XMS_ITS | Clinical Summary ---
Author Organization [facility] Address [facility] [place] [address] Care Team Providers Care Chicle Grinder Feeder Name Role Phone Santi Rodriguez MD Primary Care Provider +1 [phone] Allergies Active Allergy Reactions Criticality Noted Date Comments Acetaminophen Eyes Water & Itch,Hives,Itching Medium 1 Kiwi Fruit Throat swelling 05/23/2022 Sulfa Antibiotics Hives,Itching,Rash Low 05/23/2022 Medications aspirin EC (ECOTRIN) 81 MG tablet Take 1 tablet (81 mg total) by mouth daily. Active B Flcgxbs-Y-Enhwe Acid (RENAL) 1 MG Cap Take 1 [...] Encounters Date Type Department Care Team Description 12/14/2024 Telephone [facility] Multispecialty Care - [address], [address] [place] [address] Lu Rodriguez NP Reschedule 11/23/2024 Scan [facility] Scanned, [facility] 10/26/2024 Scan [facility] Scanned, [facility] Mammogram (SCAN) from Last 3 Months Family History Medical [...] Sex Assigned at Female 10/09/2024 12:14 PM TAFFY PULLER Legal Sex Female 3:15 PM CDT Gender Identity Not on file Sexual Orientation Not on file Last Filed Vital Signs Vital Sign Reading Time Taken Comments Blood Pressure 131/83 10/09/2024 12:31 PM TAFFY PULLER Pulse 100 10/09/2024 12:31 PM TAFFY PULLER Temperature 37.1 C (98.7 F) 10/09/2024 12:31 PM TAFFY PULLER Respiratory Rate 14 10/09/2024 12:31 PM TAFFY PULLER Oxygen Saturation 98% 10/09/2024 12:31 PM TAFFY PULLER Inhaled Oxygen Concentration - - Weight 86.5 kg (190 lb 9.6 oz) 10/09/2024 12:31 PM TAFFY PULLER Height 159.4 cm (5' 2.75 ) 10/09/2024 12:31 PM Yung TERESA Body Mass Index 34.03 10/09/2024 12:31 PM TAFFY PULLER Plan of Treatment Upcoming Encounters Date Type Department Care Team (Late st Contact Info) Description 01/21/2025 8:20 AM CDT Office Visit [facility] [address] [address] Lu Rodriguez, SEBAS [address] [address] Health Maintenance Due Date Last Done Comments Colorectal Cancer Screening Colonoscopy (10 Years) 1958 Hepatitis C 1976 DTaP, Tdap and Td Vaccines (1 - Tdap) 1977 Pneumococcal Vaccine: 50+ Years (1 of 1 - PCV) 2008 Zoster Vaccines (1 of 2) 2008 Annual Medicare Wellness Visit 2023 COVID-19 Vaccine ( season) 2024 03/24/2022, 12/05/2020, 11/10/2020 Mammogram Screening 10/26/2026 10/26/2024, 04/30/2024, 07/14/2023, Additional history exists RSV Immunization or 60+ Years (1 - 1-dose 75+ series) 2033 Dexa Scan (General) Completed 05/31/2021, PHQ-2 (Physician [place]) Completed 09/03/2024 Meningococcal B Vaccine Aged Out No l onger eligible based on patient's age to complete this topic Meningococcal Vaccine Aged Out No eliseo tiffany eligible based on patient's age to complete this topic RSV Immunizations Under 20 Months Aged Out No longer eligible based on patient's age to complete this topic Procedures Procedure Name Priority Date/Time Associated Diagnosis Comments MAMMOGRAM GENERIC (SCAN ORDER) 10/26/2024 BONE DENSITY GENERIC (SCAN ORDER) 05/31/2021 from Last 3 Months or Most Recently Relevant to Health Maintenance Results * MAMMOGRAM GENERIC (SCAN ORDER) (10/26/2024) Anatomical Region Laterality Modality Other 10/26/2024 us [facility] Scanned SCANNING Final Resu lt * BONE DENSITY GENERIC (05/31/2021) Anatomical Region Laterality Modality Other 05/31/2021 Narrative 05/31/2021 Ordered by an unspecified provider. us Documents Scanned SCANNING Final Result from Last 3 Months or Most Recently Relevant to Health Maintenance Insurance [employer] Care Teams Chicle Grinder Feeder Relationship Specialty [place] [address] [place] [address] PCP - General FAMILY PRACTICE 03/27/22
--- OUTSIDE RECORDS SUMMARY | 2025-01-14 08:24 | XMS_ITS | Clinical Summary ---
Author Organization [facility] Address [facility] [place] [address] Care Team Providers Care Supervisor Blood Name Role Phone Santi Rodriguez MD Primary Care Provider +1- [phone] Allergies Active Allergy Reactions Criticality Noted Date [...] 02/18/2024 Primary osteoarthritis of right hip 12/15/2023 Surgical History Surgery Date Site/Laterality Comments SECTION BREAST SURGERY 07/14/23 & 08/14/23 COLONOSCOPY Medical History Medical History Date Comments Arthritis 06/2019 Cancer (HCC) 05/27/2023 Degenerative joint disease (DJD) of hip PONV (postoperative nausea and vomiting) following mastectomy Family History Medical History Relation Name Comments Arthritis Father Abel Heart attack Father Abel Heart disease Father Abel Hypertension Father Abel Rashes / Skin problems Father Abel Arthritis Mother Wilmetta COPD Mother [place]met[place] Cancer Mother [place] Heart disease Mother [place] Hypertension Mother [place] Rashes / Skin problems Mother [place] Anesthesia problems Neg Hx Relation Name Status Comments Father Abel [place] age 89 Mother Wilmetta Social History Tobacco [...] 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 on file Not on file Obstetrics History Para Term AB IAB SAB Ectopic Multiple Livin g Live Births 1 Date Outcome GA Total Labor Labor/2nd/3rd Weight Sex Type Anes PTL Kendra A1 A5 Name Clin 11/11 Term F CS-LT ranv Living WARSAW Last Filed Vital Signs Vital Sign Reading [...] 04/02/2025 04/02/2024 Medical Devices Implanted Type Area Batch Analyst Device Identifier Shelf Expiration Date Model / Serial / Lot [employer] Cup Empowr Acet System Hemispherical Cluster Hole 52mm 940-02-52f - [id number] Implanted:Qty: 1 on 04/02/2024 at [facility] Right: Hip [employer] 10/09/2029 940-02-52F / / [id number] [employer] Screw Empowr Acetabular Bone 35mm 940-00-035 - [id number] Implanted:Qty: 1 on 04/02/2024 at [facility] Right: Hip [employer] 08/08/2029 940-00-035 / / [id number] [employer] Screw Empowr Acetabular Bone 20mm 940-020 - [id number] Implanted:Qty: 1 on 04/02/2024 at [facility] Right: Hip [employer] 10/09/2029 940-00-020 / / [id number] [employer] Liner Empowr Acetabular System Neutral Hxe 36f 941--36f - [id number] Implanted:Qty: 1 on 04/02/2024 at [facility] Right: Hip [employer] 02/14/2029 941-01-36F / / [id number] [employer] Hip Imp Stem Fem V548-63-4106 - [id number] Implanted:Qty: 1 on 04/02/2024 at [facility] Right: Hip [employer] 01/30/2029 O123-38-13 03 / / [id number] [employer] 36mm Hip Neutral Head Femoral Biolox Delta Fmp System 400-03362 - [id number] Implanted:Qty: 1 on 04/02/2024 at [facility] Right: Hip [employer] 02/03/2029 400-03-362 / / [id number] Insurance CHOICE [facility] PPO [place] [facility] ADVANTRA [facility] ADVANTRA Advance Directives For more information, please contact: [phone] * Full Code (Latest Code Status on File) Date Activated Date Inactivated Comments 04/02/2024 1:10 PM 04/02/2024 8:52 PM Care Teams Supervisor Blood Relationship Specialty [place] [address] [place] [address] PCP - General Family Practice 12/15/23
--- OUTSIDE RECORDS SUMMARY | 2025-01-14 08:24 | XMS_ITS | Encounter Summary ---
Author Organization [facility] Address [address] [facility] [place] [address] Care Team Providers Care Produce Runner Name Role Phone Unavailable Primary Care Provider Unavailabl e Encounter Details Date Type Department Care Team (Late st Contact Info) Description 03/26/2021 Lab Requisition [facility] [address] [place] [address] Viral August MD [address] [facility] [place] [address] Social History Tobacco Use Types Packs/Day Years Used Date Smoking Tobacco: Never Assessed Comments Unknown Sex and Gender Information Value Date Recorded Sex Assigned at Not on file Legal Sex Female 4: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 Gender Identity Not on file Sexual Orientation Not on file documented as of this encounter Plan of Treatment Not on file documented as of this encounter Procedures Procedure Name Priority Date/Time Associated Diagnosis Comments DERMATOPATHOLOGY Routine 03/22/2021 3:33 AM CDT documented in this encounter Results * DERMATOPATHOLOGY (03/22/2021 3:33 AM CDT) Case Report Dermatopathology Report Case: [id number] Authorizing Provider: Viral August MD Collected: 03/22/2021 03:33 AM Ordering Location: [facility] Received: 03/26/2021 05:29 AM Pathologist: Ashanti Kruger MD Specimen: Skin, right cheek 4:04 PM CDT DERMATOPATHOLOGY LABORATORY Final Diagnosis Specimen A. SKIN, right cheek: VERRUCA VULGARIS, INFLAMED (B07.8) 1 4:04 PM CDT DERMATOPATHOLOGY LABORATORY Clinical History SK vs VV vs SCCA. Path# [id number]. 1 4:04 PM CDT DERMATOPATHOLOGY LABORATORY Gross Description Specimen A: Received is one formalin filled container labeled with the patient's name and designated right cheek. The specimen consists of a shave biopsy measuring [id number]. Jar 0. 4:04 PM CDT DERMATOPATHOLOGY LABORATORY [...] characteristic determined by the Dermatopathology Laboratory at [facility], directed by Dr. Zara Keys. These tests need not be, and therefore are not, approved by the [place] Food and Drug Administration. The tests are used for clinical purposes. Billing Codes Specimen Charges Stain Charges 11076 1 4:04 PM CDT DERMATOPATHOLOGY LABORATORY Embedded Images 4:04 PM CDT DERMATOPATHOLOGY LABORATORY Pathology/Cytolo gy TISSUE SPECIMEN FROM SKIN / Unknown 03/22/2021 3:33 AM CDT 03/26/2021 5:29 AM CDT us Viral August MD LAB - PATHOLOGY/CYTOLOGY ORDER ANTONINO Final Result DERMATOPATHOLOGY LABORATORY [facility] - Department of Dermatology [address], [address] Floor [address] [phone] documented in this encounter Visit Diagnoses Not on filedocumented in this encounter
--- OUTSIDE RECORDS SUMMARY | 2025-01-14 08:24 | XMS_ITS | Clinical Summary ---
Author Organization [facility] Address [address] [place] [address] Care Team Providers Care Surveillance System Monitor Name Role Phone Unavailable Primary Care Provider Unavailabl e Source Comments [facility],non-owned Affiliates and Associated Physician Practices is amultiple site organization consisting of ambulatory clinics and hospital sitesin [place], [place], [place] and [place]. This disclosure is being madepursuant to the Care Everywhere program and may not contain all information available regarding this patient. Last updated 18.[facility] [employer] Social History Tobacco Use Types Packs/Day Years Used Date Smoking Tobacco: Never Assessed Comments Unknown Sex and Gender Information Value Date Recorded Sex Assigned at Not on file Legal Sex Female 4:20 AM FAMILY SUPPORT SPECIALIST Gender Identity Not on file Sexual Orientation [...] VACCINE (1 - 2023-2 5 season) 2024 DEPRESSION SCREENING 09/01/2024 MEDICARE AWV CALENDAR YEAR 2024 INFLUENZA VACCINE (Season Ended) 2025 Respiratory Syncytial Virus (RSV) Vaccine Pt: or [...] to complete this topic MENINGOCOCCAL (Group B) VACC INE SHARED DECISION-MAKING Aged Out No longer eligibl e based on patient's age to complete this topic MENINGOCOCCAL GROUPS A/C/Y/W VACCINE Aged Out No longer eligible b ased on patient's age to complete this topic Insurance AETNA MEDICARE ADV [facility] AET MEDICARE ADV [facility] MEDICARE ADV SELF PAY NO INSURANCE Member Subscriber Plan / Payer (Ef fective for All Dates) Name:Felipe Ria Member ID:Not on file Relation to Subscriber:Not on file Name:RIA WANG Subscriber ID:Not on file Address: [facility] [place] [address] Payer ID:Not on file Group ID:Not on file Type:Self Pay Address: [place], [place] [facility] MEDICARE ADV SELF PAY NO INSURANCE Member Subscriber Plan / Payer (Ef fective for All Dates) Name:Ria Wang Member ID:Not on file Relation to Subscriber:Not on file Name:RIA WANG Subscriber ID:Not on file Address: [address] [place] [address] [place] [address] Payer ID:Not on file Group ID:Not on file Type:Self Pay Address: [place], [place]
--- OUTSIDE RECORDS SUMMARY | 2025-01-14 08:24 | XMS_ITS | Referral Summary ---
Author Organization 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 on file [...] on file Medical Devices Implanted Type Area Buffer Operator Device Identifier Shelf Expiration Date Model / Serial / Lot [employer] Cup Empowr Acet System Hemispherical Cluster Hole 52mm 940-02-52f - [id number] Implanted:Qty: 1 on 04/02/2024 at [facility] Right: Hip [employer] 10/09/2029 940-02-52F / / [id number] [employer] Screw Empowr Acetabular Bone 35mm 940-00-035 - [id number] Implanted:Qty: 1 on 04/02/2024 at [facility] Right: Hip [employer] 08/08/2029 940-00-035 / / [id number] [employer] Screw Empowr Acetabular Bone 20mm 940-00-020 - [id number] Implanted:Qty: 1 on 04/02/2024 at [facility] Right: Hip [employer] 10/09/2029 940-00-020 / / [id number] [employer] Liner Empowr Acetabular System Neutral Hxe 36f 941--36f - [id number] Implanted:Qty: 1 on 04/02/2024 at [facility] Right: Hip [employer] 02/14/2029 941-01-36F / / [id number] [employer] Hip Imp Stem Fem Z527-09-1960 - [id number] Implanted:Qty: 1 on 04/02/2024 at [facility] Right: Hip [employer] 01/30/2029 H617-87-86 03 / / [id number] [employer] 36mm Hip Neutral Head Femoral [employer] Delta Fmp System 400-03-362 - [id number] Implanted:Qty: 1 on 04/02/2024 at [facility] Right: Hip [employer] 02/03/2029 400-03-362 / / [id number] Insurance CHOICE [place] [facility] [employer] Advance Directives For more information, please contact: [phone] * Full Code (Latest Code Status on File) Date Activated Date Inactivated Comments 04/02/2024 1:10 PM 04/02/2024 8:52 PM Care Teams Building Services Coordinator Relationship Specialty [place] [address] [place] [address] PCP - General Family Practice 12/15/23
[2025-01-14 08:31] LABS: Basophils Absolute Auto 0.1 K/mm3 (0.0-0.1); Basophils Percent Auto 1.3 % (0.2-1.2); Eosinophils Absolute Auto 0.1 K/mm3 (0-0.3); Eosinophils Percent Auto 1.6 % (0-4.4); Hemoglobin 13.9 g/dL (12.0-15.0); Immature Granulocyte Absolute 0.02 K/mm3 (0.00-0.031); Immature Granulocyte Percent A 0.3 % (0-0.5); Lymphocytes Percent Auto 26.2 % (18.3-44.2); Mean Corpuscular HGB Conc 33.9 g/dl (32-36); Mean Corpuscular Hemoglobin 33.2 pg (26-34); Mean Corpuscular Volume 97.9 fl (80-100); Monocytes Absolute Auto 0.7 K/mm3 (0.1-0.6); Neutrophils Absolute Auto 3.6 K/mm3 (1.3-6.7); Neutrophils Percent Auto 59.6 % (45.5-73.1); Platelet Count Result 250 k/mm3 (150-375); Red Blood Count 4.19 M/mm3 (4.2-5.4); Red Cell Distribution Width 12.8 % (11.5-14.5); White Blood Count 6.1 K/mm3 (4.5-10.0)
[2025-01-14 08:35] LABS: Blood Urea Nitrogen 21 mg/dL (8-26); Carbon Dioxide 23 mmol/L (22-30); Chloride 107 mmol/L (98-109); Estimated Glomerular Filt Rate > 60; Glucose 115 mg/dL (70-105); Ionized Calcium (POC) 1.21 mmol/L (1.11-1.31); Potassium 4.1 mmol/L (3.5-4.9); Sodium 143 mmol/L (138-146)
[2025-01-14 10:31] LABS: Alanine Aminotransferase 23 U/L (6-35); Albumin Level 4.2 g/dL (3.5-5.1); Alkaline Phosphatase 50 U/L (38-126); Anion Gap 9 mmol/L (4-12); Aspartate Amino Transferase 35 U/L (14-36); Bilirubin,Total 0.7 mg/dL (0.2-1.3); Blood Urea Nitrogen 20 mg/dL (7-17); Calcium 9.2 mg/dL (8.4-10.2); Carbon Dioxide 23 mmol/L (22-30); Chloride 108 mmol/L (98-107); Estimated Glomerular Filt Rate > 60; Glucose 110 mg/dL (65-110); Potassium 4.2 mmol/L (3.4-5.0); Sodium 140 mmol/L (137-145)
== END 2025-01-14 08:19 | disposition home or self-care (01) ==
LOC: ANHLAB 08:20
PROVIDERS: PCP Family Medicine; Visit Provider Internal Medicine Hematology & Oncology
DX: D05.12 Intraductal carcinoma in situ of left breast (principal)
CPT/HCPCS: 36415; 80047; 80053; 85025

== ENCOUNTER 2025-04-22 08:31 | Outpatient (CLI) | payer MEDICARE, SELFPAY ==
--- NOTE | ~2025-04-22 | US_ITS ---
EXAMINATION TYPE: US breast RT limited COMPARISON: 04/30/2024 REASON FOR STUDY: N63.15 - Unspecified lump in the right breast, overlappin... TECHNIQUE: Targeted sonographic evaluation of the right breast was performed. INTERPRETATION: At the 12:00 position, 2 cm from the nipple, there is 7 x 5 x 3 mm hypoechoic solid mass, wider than tall, well-circumscribed, with posterior through transmission. At the 8:00 position right breast, 6 cm from the nipple, there is a 4 mm circumscribed hypoechoic mass. No posterior shadowing. At the 10:00 position right breast, 7 cm from the nipple, there is an 8 mm cyst with focal mural nodularity. IMPRESSION: Subcentimeter sonographic lesions, as detailed above, which are essentially stable from prior exam. These have a probable benign appearance overall. Additional six-month follow-up ultrasound recommended to show continued stability. BI-RADS CATEGORY: BI-RADS 3: Probably benign. Short interval follow-up recommended. Reviewed, dictated and finalized at location . IMPRESSION: Subcentimeter sonographic lesions, as detailed above, which are essentially sta ble from prior exam. These have a probable benign appearance overall. Additiona l six-month follow-up ultrasound recommended to show continued stability. BI-RADS CATEGORY: BI-RADS 3: Probably benign. Short interval follow-up recommended.
--- OUTSIDE RECORDS SUMMARY | 2025-04-22 08:35 | XMS_ITS | Encounter Summary ---
Author Organization [facility] Address [address] [place] [address] Care Team Providers Care Caustic Liquor Maker Name Role Phone Unavailable Primary Care Provider Unavailabl e Encounter Details Date Type Department Care Team (Late st Contact Info) Description 03/26/2021 Lab Requisition [facility] [address] [place] [address] Viral August MD [address] [place] [address] Social History Tobacco Use Types Packs/Day Years Used Date Smoking Tobacco: Never Assessed Comments Unknown Sex and Gender Information Value Date Recorded Sex Assigned at Not on file Legal Sex Female 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 CARE MANAGER Gender Identity Not on file Sexual Orientation Not on file documented as of this encounter Plan of Treatment Not on file documented as of this encounter Procedures Procedure Name Priority Date/Time Associated Diagnosis Comments DERMATOPATHOLOGY Routine 03/22/2021 3:33 AM CDT documented in this encounter Results * DERMATOPATHOLOGY (03/22/2021 3:33 AM CDT) Case Report Dermatopathology Report Case: [id number] Authorizing Provider: Viral August MD Collected: 03/22/2021 03:33 AM Ordering Location: [facility] Received: 03/26/2021 05:29 AM Pathologist: Ashanti Kruger MD Specimen: Skin, right cheek 4:04 PM CDT DERMATOPATHOLOGY LABORATORY Final Diagnosis Specimen A. SKIN, right cheek: VERRUCA VULGARIS, INFLAMED (B07.8) 1 4:04 PM CDT DERMATOPATHOLOGY LABORATORY at 1604 CDT Clinical History SK vs VV vs SCCA. Path# [id number]. 1 4:04 PM CDT DERMATOPATHOLOGY LABORATORY Gross Description Specimen A: Received is one formalin filled container labeled with the patient's name and designated right cheek. The specimen consists of a shave biopsy measuring [id number]. Jar 0. 1 4:04 PM CDT DERMATOPATHOLOGY [...] determined by the Dermatopathology Laboratory at [facility], directed by Dr. Zara Keys. These tests need not be, and therefore are not, approved by the [place] Food and Drug Administration. The tests are used for clinical purposes. Billing Codes Specimen Charges Stain Charges 19581 1 1 4:04 PM CDT DERMATOPATHOLOGY LABORATORY Embedded Images 4:04 PM CDT DERMATOPATHOLOGY LABORATORY Pathology/Cytolo gy TISSUE SPECIMEN FROM SKIN / Unknown 03/22/2021 3:33 AM CDT 03/26/2021 5:29 AM CDT us Viral August MD LAB - PATHOLOGY/CYTOLOGY ORDER ANTONINO Final Result DERMATOPATHOLOGY LABORATORY [facility] - Department of Dermatology [address], [address] Floor [address] [phone] documented in this encounter Visit Diagnoses Not on filedocumented in this encounter
--- OUTSIDE RECORDS SUMMARY | 2025-04-22 08:35 | XMS_ITS | Clinical Summary ---
Author Organization [facility] Address [address] [place] [address] Care Team Providers Care Adjunct Instructor In Economics Name Role Phone Unavailable Primary Care Provider Unavailabl e Source Comments [facility],non-owned Affiliates and Associated Physician Practices is amultiple site organization consisting of ambulatory clinics and hospital sitesin [place], [place], [place] and [place]. This disclosure is being madepursuant to the Care Everywhere program and may not contain all information available regarding this patient. Last updated 18.[facility] [employer] Social History Tobacco Use Types Packs/Day Years Used Date Smoking Tobacco: Never Assessed Comments Unknown Sex and Gender Information Value Date Recorded Sex Assigned at Not on file Legal Sex Female 4:20 AM MOBILE APPLICATION TESTER Gender Identity Not on file Sexual Orientation [...] MEDICARE AWV CALENDAR YEAR 2024 INFLUENZA VACCINE (#1) 2025 Respiratory Syncytial Virus (RSV) Vaccine Pt: [...] complete this topic Insurance AETNA MEDICARE ADV [facility] AET MEDICARE ADV [facility] MEDICARE ADV SELF PAY NO INSURANCE Member Subscriber Plan / Payer (Ef fective for All Dates) Name:Felipe Ria Member ID:Not on file Relation to Subscriber:Not on file Name:RIA WANG Subscriber ID:Not on file Address: [facility] [place] [address] Payer ID:Not on file Group ID:Not on file Type:Self Pay Address: [place], [place] [facility] MEDICARE ADV SELF PAY NO INSURANCE Member Subscriber Plan / Payer (Ef fective for All Dates) Name:Ria Wang Member ID:Not on file Relation to Subscriber:Not on file Name:RIA WANG Subscriber ID:Not on file Address: [address] [place] [address] [place] [address] Payer ID:Not on file Group ID:Not on file Type:Self Pay Address: [place], [place]
--- OUTSIDE RECORDS SUMMARY | 2025-04-22 08:35 | XMS_ITS | Clinical Summary ---
Author Organization [facility] Address [address] [place] [address] Phone Care Team Providers Care Patient Centered Care Specialist Name Role Phone Santi Rodriguez MD Primary [...] mouth daily. Active Flaxseed Oil Oil by [facility].(Non-D rug; Combo Route) route. Active xsumxma-wnwn-bqg wd-pihm-gvsaui 100 mg-150 mg- 50 mg-150 mg Capsule [...] Encounters Date Type Department Care Team Description 04/06/2025 External Device Data ST[facility] ABSTRACTION Provider, Abstract 04/05/2025 External Device Data ST[facility] ABSTRACTION Provider, Abstract 03/16/2025 External Device Data ST[facility] ABSTRACTION Provider, Abstract 03/16/2025 External Device Data ST[facility] ABSTRACTION Provider, Abstract 03/15/2025 External Device Data ST[facility] ABSTRACTION Provider, Abstract [...] Sex Assigned at Female 09/25/2023 3:26 PM SET UP MECHANIC HEADING MACHINES Legal Sex Female 12:03 PM CDT Gender Identity Female 09/25/2023 3:26 PM SET UP MECHANIC HEADING MACHINES Sexual Orientation Straight 09/25/2023 3: 26 PM SET UP MECHANIC HEADING MACHINES Last Filed Vital Signs Vital Sign Reading Time Taken Comments Blood Pressure 130/80 01/14/2025 8:41 AM CDT Pulse 75 01/14/2025 8:41 AM CDT Temperature 36.6 C (97.9 F) 01/14/2025 8:41 AM CDT Respiratory Rate 15 01/14/2025 8:41 AM CDT Oxygen Saturation 92% 01/14/2025 8:41 AM CDT Inhaled Oxygen Concentration - - Weight 84.6 kg (186 lb 6.4 oz) 01/14/2025 8:41 A M CDT Height - - Body Mass Index - - Plan of Treatment Upcoming Encounters Date Type Department Care Team (Late st Contact Info) Description 07/26/2025 10:15 AM SET UP MECHANIC HEADING MACHINES Office Visit [facility] Oncology and Hematology - [place] [address] [facility] [address] [place] [address] Karthik Valverde MD [address] [facility] [address] [place] [address] Health Maintenance Due Date Last [...] SCREENING 12/17/2017 12/17/2016, 12/05 INFLUENZA VACCINE (#1) 2025 OSTEOPOROSIS SCREENING 05/31/2026 05/31/2021 RSV VACCINE (60+ or ) (1 - 1-dose 75+ series) 2033 Insurance AETNA PPO MCR Care Teams Patient Centered Care Specialist Relationship Specialty [place] [address] [place] [address] PCP - General Family Practice 06/13/23
--- OUTSIDE RECORDS SUMMARY | 2025-04-22 08:35 | XMS_ITS | Clinical Summary ---
Author Organization [facility] Address [facility] [place] [address] Care Team Providers Care Seat Cover Installer Name Role Phone Santi Rodriguez MD Primary Care Provider +1 [phone] Allergies Active Allergy Reactions Criticality Noted Date Comments Acetaminophen Eyes Water & Itch,Hives,Itching Medium 1 Kiwi Fruit Throat swelling 05/23/2022 Sulfa Antibiotics Hives,Itching,Rash Low 05/23/2022 Medications aspirin EC (ECOTRIN) 81 MG tablet Take 1 tablet (81 mg total) by mouth daily. Active B Gdsfyel-W-Uxaws Acid (RENAL) 1 MG Cap Take 1 [...] tablet Take 1 tablet by mouth daily. Active vitamin C (ASCORBIC ACID) 500 MG [...] AND 1 TABLET DAY SIX 1 each 4 Active amoxicillin (AMOXIL) 500 MG capsule TAKE 4 PILLS 1 HOUR BEFORE DENTAL APPOINTMENT. 5 Active Na sulfate-K sulfate-Mg sulfate (SUPREP BOWEL PREP KIT) 17.5-3.13-1.6 GM/177ML SolutionIndicat ions:Screening for colon cancer Take 177 mLs by mouth every 12 (twelve) hours. Per GI instructions 354 mL 5 Active Active Problems Problem Noted Date Diagnosed Date Hyperlipidemia 02/18/2024 Osteoarthritis of right hip 12/15/2023 Resolved Problems Problem Noted Date Diagnosed Date Resolved Date Screening for colon cancer 01/21/2025 0 01/24/2025 Encounters Date Type Department Care Team Description 04/12[facility] [address], [address] [place] [phone] Jorge Lui MD Prior Authorization (Colonoscopy 801[address]) 04/04/2025 Scan Selenokhod INFO SRVCS Scanned, Doc [facility] 01/21/2025 8:20 AM CDT Office Visit [facility] [address] [address] Lu Rodriguez NP Consult For Colonoscopy 01/21/2025 Orders Only [facility] - [address], [address] [place] [phone] Jorge Lui MD 01/21/2025 Travel from Last 3 Months Family History [...] Date Recorded Patient Health Questionnaire-2 Score 0 01/21/2025 Comments No Sex and Gender Information Value Date Recorded Sex Assigned at Female 10/09/2024 12:14 PM LOWER 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 Legal Sex Female 3:15 PM CDT Gender Identity Not on file Sexual Orientation Not on file Last Filed Vital Signs Vital Sign Reading Time Taken Comments Blood Pressure 150/90 01/21/2025 8:32 AM CDT Pulse 86 01/21/2025 8:32 AM CDT Temperature 36.4 C (97.5 F) 01/21/2025 8:32 AM CDT Respiratory Rate 14 10/09/2024 12:31 PM LOWER 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 Oxygen Saturation 98% 10/09/2024 12:31 PM LOWER 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 Inhaled Oxygen Concentration - - Weight 85.7 kg (189 lb) 01/21/2025 8:32 AM CDT Height 162.6 cm (5' 4) 01/21/2025 8:32 AM CDT Body Mass Index 32.44 01/21/2025 8:32 AM CDT Plan of Treatment Upcoming Encounters Date Type Department Care Team (Latest Contact Info) Description 05/27/2025 11:32 AM CDT Hospital Encounter [facility] [address] [place] [address] Jorge Lui MD [address] [place] [address] 05/27/2025 11:32 AM CDT - 05/27/2025 12:07 PM CDT Surgery [facility] [address] [place] [address] Jorge Lui MD [address] [place] [address] COLONOSCOPY SCREENING Scheduled Procedures Name Priority Associated Diagnoses Date/Ti me COLONOSCOPY SCREENING Screening for colon cancer 05/27/2025 11:32 AM CDT Health Maintenance Due Date Last Done Comments Colorectal Cancer Screening Colonoscopy (10 Years) 1958 Hepatitis C 1976 DTaP, Tdap and Td Vaccines (1 - Tdap) 1977 Pneumococcal Vaccine: 50+ Years (1 of 1 - PCV) 2008 Zoster Vaccines (1 of 2) 2008 Annual Medicare Wellness Visit 2023 COVID-19 Vaccine ( - season) 2024 03/24/2022, 12/05/2020, 11/10/2020 Mammogram Screening 10/26/2026 10/26/2024, 04/30/2024, 07/14/2023, Additional history exists RSV Immunization or 60+ Years (1 - 1-dose 75+ series) 2033 Dexa Scan (General) Completed 05/31/2021, PHQ-2 (Physician [place]) Completed 01/21/2025 Meningococcal B Vaccine Aged Out No l [...] to Health Maintenance Insurance AETNA Care Teams Seat Cover Installer Relationship Specialty [place] [address] [address] [place] [id number] PCP - General FAMILY PRACTICE 03/27/22
--- OUTSIDE RECORDS SUMMARY | 2025-04-22 08:35 | XMS_ITS | Clinical Summary ---
Author Organization [facility] [place] Address [facility] [place] [address] Care Team Providers Care Swine Extension Field Specialist Name Role Phone Santi Rodriguez MD Primary Care Provider [phone]- [phone] Allergies Active Allergy Reactions Criticality Noted Date [...] DENTAL APPOINTMENT. 12 tablet/capsul e 5 Active sodium, potassium & mag sulfates (SUPREP BOWEL KIT) 17.5-3.13-1.6 gram recon soln Take 177 mL by mouth every 12 (twelve) hours 5 Active Active Problems Problem Noted Date Diagnosed Date Osteoarthritis of right hip, unspecified osteoarthritis type 04/02/2024 Hyperlipidemia 02/18/2024 Primary osteoarthritis of right hip 12/15/2023 Osteoarthritis of right hip 12/15/2023 Encounters Date Type Department Care Team Description 04/04/2025 8:00 AM CDT Office Visit [facility] Medicine Orthopaedic Surgery [address] [facility] [address] [place] [address] Jaleesa Newsome PA Hx of total hip arthroplasty, right (Primary Dx); Iliopsoas bursitis of right hip 04/04/2025 7:30 AM CDT - 04/04/2025 11:59 PM CDT Hospital Encounter [id number] [address] [facility] [address] [place] [address] Hx of total hip arthroplasty, right Discharge Disposition: Discharge to home or self care from Last 3 Months Surgical History Surgery Date Site/Laterality Comments SECTION BREAST SURGERY 07/14/23 & 08/14/23 COLONOSCOPY HIP SURGERY Medical History Medical History Date Comments Arthritis [...] Hx Relation Name Status Comments Father Abel DC age 89 Mother [place] Social History Tobacco Use Types Packs/Day Years Used Date Smoking Tobacco: Never Cigarettes Smokeless Tobacco: Never Tobacco Cessation:Counseling Given: Not Answered Alcohol Use Standard Drinks/Week Comments Never 0 (1 standard drink = 0.6 oz pur e alcohol) AUDIT-C Answer Date Recorded Q1: How often do you have a drink containing alc ohol? 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 on file [...] CDT Inhaled Oxygen Concentration - - Weight 87.7 kg (193 lb 6.4 oz) 04/04/2025 7:52 A M CDT Height 161.9 cm (5' 3.75) 04/04/2025 7:52 AM CD T Body Mass Index 33.46 04/04/2025 7:52 AM CDT Plan of Treatment Health Maintenance Due Date Last Done Comments Breast Cancer Screening-Mammogram 1960 Colon Cancer Screening-Colonoscopy 1960 Depression Screening 1958 Hepatitis C Screening 1960 Osteoporosis Screening-Bone Density Scan 1958 DTaP/Tdap/Td Vaccine (1 - Tdap) 1969 Hepatitis B Screening 1976 Pneumococcal vaccine 65+ (1 of 2 - PCV) 1977 Zoster Vaccine (1 of 2) 1977 Well Visit 65+ 2023 Covid-19 Vaccine ( - season) 2024 03/24/2022, 12/05/2020, 11/10/2020 Fall Risk Assessment 04/02/2025 04/02/2024 Influenza Vaccine (#1) 2025 Medical Devices Implanted Type Area Global Marketing Coordinator Device Identifier Shelf Expiration Date Model / Serial / Lot [employer] Cup Empowr Acet System Hemispherical Cluster Hole 52mm 940-02-52f - [id number] Implanted:Qty: 1 on 04/02/2024 at [facility] Right: Hip [employer] 10/09/2029 940-02-52F / / [id number] [employer] Screw Empowr Acetabular Bone 35mm 940-00-035 - [id number] Implanted:Qty: 1 on 04/02/2024 at [facility] Right: Hip [employer] 08/08/2029 940-00-035 / / [id number] [employer] Screw Empowr Acetabular Bone 20mm 940-00-020 - [id number] Implanted:Qty: 1 on 04/02/2024 at [facility] Right: Hip [employer] 10/09/2029 940-00-020 / / [id number] [employer] Liner Empowr Acetabular System Neutral Hxe 36f 941-01-36f - [id number] Implanted:Qty: 1 on 04/02/2024 at [facility] Right: Hip [employer] 02/14/2029 941-01-36F / / [id number] [employer] Hip Imp Stem Fem K842-17-5433 - [id number] Implanted:Qty: 1 on 04/02/2024 at [facility] Right: Hip [employer] 01/30/2029 K254-90-85 03 / / [id number] [employer] 36mm Hip Neutral Head Femoral Biolox Delta Fmp System 400-03362 - [id number] Implanted:Qty: 1 on 04/02/2024 at [facility] Right: Hip [employer] 02/03/2029 400-03362 / / [id number] Procedures Procedure Name Priority Date/Time Associated Diagnosis Comments XR HIP RIGHT W PELVIS 2 OR 3 VIEWS Schedule Routine, Read Routine (OP Routine) 04/04/2025 7:43 AM CDT Hx of total hip arthroplasty, right from Last 3 Months Results * XR Hip Right 2 or 3 Views W Pelvis (04/04/2025 7:43 AM CDT) Anatomical Region Laterality Modality Lower Extremities, Hip, Pelvis Right C omputed Radiography 04/04/2025 8:39 AM CDT Impressions 04/04/2025 9:18 AM CDT 1. Unchanged right total hip arthroplasty in near anatomic alignment. Dictated by: Brian Yanez MD The radiology attending physician has personally reviewed this study, and had reviewed and/or edited this written report and agrees with it. Electronically signed by: Dc Sloorzano MD Narrative 04/04/2025 9:18 AM CDT EXAMINATION: XR HIP RIGHT 2 OR 3 VIEWS W PELVIS HISTORY: Arthroplasty COMPARISON: 05/21/2024 FINDINGS: Right total hip arthroplasty in unchanged, near anatomic alignment without periprosthetic fracture or osteolysis. No new fracture Procedure Note Dc Solorzano MD - 04/04/2025 EXAMINATION: XR HIP RIGHT 2 OR 3 VIEWS W PELVIS HISTORY: Arthroplasty COMPARISON: 05/21/2024 FINDINGS: Right total hip arthroplasty in unchanged, near anatomic alignment without periprosthetic fracture or osteolysis. No new fracture IMPRESSION: 1. Unchanged right total hip arthroplasty in near anatomic alignment. Dictated by: Brian Yanez MD The radiology attending physician has personally reviewed this study, and had reviewed and/or edited this written report and agrees with it. Electronically signed by: Dc Solorzano MD Jaleesa PATHAK IMG XR PROCEDURES Li l Result from Last 3 Months Insurance [employer] [place] [facility] [place] [address] [facility] Advance Directives For more information, please contact: [phone] * Full Code (Latest Code Status on File) Date Activated Date Inactivated Comments 04/02/2024 1:10 PM 04/02/2024 8:52 PM Care Teams Swine Extension Field Specialist Relationship Specialty [place] [address] [place] [address] PCP - General Family Practice 12/15/23
== END 2025-04-22 08:32 | disposition home or self-care (01) ==
LOC: ANHFOHIMG 08:33
PROVIDERS: PCP Family Medicine; Visit Provider Surgery
DX: N63.15 Unspecified lump in the right breast, overlapping quadrants (principal); N63.13 Unspecified lump in the right breast, lower outer quadrant; N63.11 Unspecified lump in the right breast, upper outer quadrant; N63.41 Unspecified lump in right breast, subareolar
CPT/HCPCS: 76642

== ENCOUNTER 2025-07-26 09:33 | Outpatient (CLI) | payer MEDICARE, SELFPAY ==
[2025-07-26 09:44] LABS: Hematocrit 40.6 % (37.0-47.0); Hemoglobin 13.8 g/dL (12.0-15.0); Immature Granulocyte Percent A 0.3 % (0-0.5); Lymphocytes Absolute Auto 1.93 K/mm3 (0.9-3.2); Mean Corpuscular HGB Conc 34.0 g/dl (32-36); Mean Corpuscular Hemoglobin 33.7 pg (26-34); Mean Corpuscular Volume 99.0 fl (80-100); Nucleated Red Blood Cells Absolute Auto 0.000 K/mm3 (0.0-0.012); Nucleated Red Blood Cells Perc 0.0 % (0.0-0.2); Platelet Count Result 231 k/mm3 (150-375); Red Blood Count 4.10 M/mm3 (4.2-5.4); White Blood Count 7.6 K/mm3 (4.5-10.0)
[2025-07-26 09:47] LABS: Blood Urea Nitrogen 20 mg/dL (8-26); Carbon Dioxide 26 mmol/L (22-30); Chloride 105 mmol/L (98-109); Estimated Glomerular Filt Rate > 60; Glucose 105 mg/dL (70-105); Ionized Calcium (POC) 1.22 mmol/L (1.11-1.31); Potassium 4.3 mmol/L (3.5-4.9); Sodium 143 mmol/L (138-146)
--- OUTSIDE RECORDS SUMMARY | 2025-07-26 10:15 | XMS_ITS | Encounter Summary ---
Author Organization [facility] Address [address] [place] [address] Care Team Providers Care Furniture Fabricator Name Role Phone Santi Rodriguez MD Primary Care Provide r Encounter Details Date Type Department Care Team (Late st Contact Info) Description 07/26/2025 10:15 AM CAD DRAFTER Office Visit [facility] Oncology and Hematology - [place] [address] [facility] [address] [place] [address] Karthik Valverde MD [address] [facility] [address] [place] [address] Arrived Social History Tobacco Use Types Packs/Day Years Used Date Smoking Tobacco: Never Smokeless Tobacco: Never Alcohol Use Standard Drinks/Week Comments Not Currently 0 (1 standard drink = 0.6 oz pur e alcohol) Comments Unknown Sex and Gender Information Value Date Recorded Sex Assigned at Female 09/25/2023 3:26 PM CAD DRAFTER Legal Sex Female 12:03 PM CDT Gender Identity Female 09/25/2023 3:26 PM CAD DRAFTER Sexual Orientation Straight 09/25/2023 3: 26 PM CAD DRAFTER documented as of this encounter Last Filed Vital Signs Vital Sign Reading Time Taken Comments Blood Pressure 154/84 07/26/2025 10:25 AM CAD DRAFTER Pulse 79 07/26/2025 10:22 AM CAD DRAFTER Temperature 36.6 C (97.9 F) 07/26/2025 10:22 AM CAD DRAFTER Respiratory Rate 15 07/26/2025 10:22 AM CAD DRAFTER Oxygen Saturation 98% 07/26/2025 10:22 AM CAD DRAFTER Inhaled Oxygen Concentration - - Weight 88.9 kg (196 lb) 07/26/2025 10:22 AM CAD DRAFTER Height - - Body Mass Index - - documented in this encounter Plan of Treatment Not on file documented as of this encounter Visit Diagnoses Not on filedocumented in this encounter Care Teams Furniture Fabricator Relationship Specialty [place] [address] [place] [address] PCP - General Family Practice 06/13/23 documented as of this encounter
--- OUTSIDE RECORDS SUMMARY | 2025-07-26 10:26 | XMS_ITS | Clinical Summary ---
Author Organization [facility] Address [address] [place] [address] Phone Care Team Providers Care Bookkeeping Assistant Name Role Phone Santi Rodriguez MD Primary Care Provide r Allergies Active Allergy Reactions Criticality Noted Date Comments Acetaminophen Unknown 07/26/2025 Sulfa (Sulfonamide Antibiotics) Rash Low 06/01 Medications cyanocobalamin (VITAMIN B-12) 500 mcg tablet [...] mouth daily. Active Flaxseed Oil Oil by [facility]Non-D rug; Combo Route) route. Active xunclky-tgco-hwb wq-bynj-fddcxk 100 mg-150 mg- 50 mg-150 mg Capsule Take by mouth. Active multivitamin (DAILY-BERLIN) tablet Take 1 Tablet by mouth daily. Active ibuprofen (MOTRIN) 200 mg tablet Take 200 mg by mouth every 6 hours as needed for Pain, Mild. Active tamoxifen (NOLVADEX) 20 mg tablet TAKE 1 TABLET BY MOUTH EVERY DAY 90 Tablet 3 12/13/2024 Active atorvastatin (LIPITOR) 20 mg tablet Take 20 mg by mouth daily. 05/25/2025 Active Active Problems No known active problems Encounters Date Type Department Care Team Description 07/26/2025 10:15 AM AVIATION ELECTRONIC WARFARE OPERATOR Office Visit [facility] Oncology and Hematology - [place] [address] [place] [address] Karthik Valverde MD Arrived 07/19/2025 External Device Data STL ABSTRACTION Provider, Abstract 06/29/2025 External Device Data STL ABSTRACTION Provider, Abstract 06/28/2025 External Device Data STL ABSTRACTION Provider, Abstract 06/22/2025 External Device Data STL ABSTRACTION Provider, Abstract 06/21/2025 External Device Data STL ABSTRACTION Provider, Abstract 05/17/2025 External Device Data STL ABSTRACTION Provider, Abstract 05/10/2025 External Device Data STL ABSTRACTION Provider, Abstract [...] Sex Assigned at Female 09/25/2023 3:26 PM AVIATION ELECTRONIC WARFARE OPERATOR Legal Sex Female 12:03 PM CDT Gender Identity Female 09/25/2023 3:26 PM AVIATION ELECTRONIC WARFARE OPERATOR Sexual Orientation Straight 09/25/2023 3: 26 PM AVIATION ELECTRONIC WARFARE OPERATOR Last Filed Vital Signs Vital Sign Reading Time Taken Comments Blood Pressure 154/84 07/26/2025 10:25 AM AVIATION ELECTRONIC WARFARE OPERATOR Pulse 79 07/26/2025 10:22 AM AVIATION ELECTRONIC WARFARE OPERATOR Temperature 36.6 C (97.9 F) 07/26/2025 10:22 AM AVIATION ELECTRONIC WARFARE OPERATOR Respiratory Rate 15 07/26/2025 10:22 AM AVIATION ELECTRONIC WARFARE OPERATOR Oxygen Saturation 98% 07/26/2025 10:22 AM AVIATION ELECTRONIC WARFARE OPERATOR Inhaled Oxygen Concentration - - Weight 88.9 kg (196 lb) 07/26/2025 10:22 AM AVIATION ELECTRONIC WARFARE OPERATOR Height - - Body Mass Index - - Plan of Treatment Health Maintenance Due Date Last Done Comments Pre-Diabetes and Diabetes Screening 1958 DTAP/TDAP/TD VACCINES (1 - Tdap) 1977 FIT-DNA Q 3 years 2003 FIT/FOBT Q 1 year 2003 Flex Sig/CT Colonography Q 5 years 2003 PNEUMOCOCCAL VACCINE 50+ YEA RS (1 of 1 - PCV) 2008 ZOSTER VACCINE (1 of 2) 2008 BREAST CANCER SCREENING 12/17/2017 12/17/2016, 12/05 INFLUENZA VACCINE (#1) 2025 OSTEOPOROSIS SCREENING 05/31/2026 05/31/2021 RSV VACCINE (60+ or ) (1 - 1-dose 75+ series) 2033 COLORECTAL SCREENING 05/27/2035 05/27/2025 Colorectal Cancer Screening 05/27/2035 Medicare [place] ([place]) Preventative Visit/Annual Wellness Visit Completed 05/24/2025, 02/03/2024, 05/23/2022, Additional history exists Insurance [employer] PPO MCR Member Subscriber Plan / Payer (Ef fective 2023-Present) Name:Regine Wang Relation to Subscriber:Self Name:Regine Wang Payer ID:Not on file Type:PPO Address: [facility] [id number] [place] [id number] Care Teams Bookkeeping Assistant Relationship Specialty [place] [address] [place] [address] PCP - General Family Practice 06/13/23
--- OUTSIDE RECORDS SUMMARY | 2025-07-26 10:26 | XMS_ITS | Clinical Summary ---
Author Organization [facility] Address [facility] [place] [address] Care Team Providers Care Bisque Placer Name Role Phone Santi Rodriguez MD Primary Care Provider +1- [phone] Allergies Active Allergy Reactions Criticality Noted Date [...] hip 12/15/2023 Osteoarthritis of right hip 12/15/2023 Surgical History Surgery [...] Hx Relation Name Status Comments Father Abel [place] age 89 Mother [place] Social History Tobacco [...] Average Number of Drinks Not on file Frequency of Binge Drinking Not on file [...] 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 Not on file Not [...] of 2) 1977 Well Visit 65+ 2023 Fall Risk Assessment 04/02/2025 04/02/2024 Covid-19 Vaccine ( season) 2025 03/24/2022, 12/05/2020, 11/10/2020 Influenza Vaccine (#1) 2025 Medical Devices Implanted Type Area Phlebotomy Supervisor Device Identifier Shelf Expiration Date Model / Serial / Lot [employer] Cup Empowr Acet System Hemispherical Cluster Hole 52mm 940-02-52f - [id number] Implanted:Qty: 1 on 04/02/2024 at [facility] Right: Hip [employer] 10/09/2029 940-02-52F / / [id number] [employer] Screw Empowr Acetabular Bone 35mm 940-00-035 - [id number] Implanted:Qty: 1 on 04/02/2024 at [facility] Right: Hip [employer] 08/08/2029 940-00-035 / / [id number] [employer] Screw Empowr Acetabular Bone 20mm 940--020 - [id number] Implanted:Qty: 1 on 04/02/2024 at [facility] Right: Hip [employer] 10/09/2029 940-00-020 / / [id number] [employer] Liner Empowr Acetabular System Neutral Hxe 36f 941--36f - [id number] Implanted:Qty: 1 on 04/02/2024 at [facility] Right: Hip [employer] 02/14/2029 941--36F / / [id number] [employer] Hip Imp Stem Fem Y379-62-1312 - [id number] Implanted:Qty: 1 on 04/02/2024 at [facility] Right: Hip [employer] 01/30/2029 Q195-92-24 03 / / [id number] [employer] 36mm Hip Neutral Head Femoral [employer] Delta Fmp System 400-03362 - [id number] Implanted:Qty: 1 on 04/02/2024 at [facility] Right: Hip [employer] 02/03/2029 400-03-362 / / [id number] [facility] [place] [address] [facility] [place]PO [place] [employer] Advance Directives For more information, please contact: [phone] * Full Code (Latest Code Status on File) Date Activated Date Inactivated Comments 04/02/2024 1:10 PM 04/02/2024 8:52 PM Care Teams Bisque Placer Relationship Specialty [place] [address] [place] [address] PCP - General Family Practice 12/15/23
[2025-07-26 12:20] LABS: Alanine Aminotransferase 26 U/L (6-35); Albumin Level 4.3 g/dL (3.5-5.1); Alkaline Phosphatase 58 U/L (38-126); Anion Gap 7 mmol/L (4-12); Aspartate Amino Transferase 30 U/L (14-36); Bilirubin,Total 0.8 mg/dL (0.2-1.3); Blood Urea Nitrogen 19 mg/dL (7-17); Calcium 9.4 mg/dL (8.4-10.2); Carbon Dioxide 27 mmol/L (22-30); Chloride 105 mmol/L (98-107); Estimated Glomerular Filt Rate > 60; Glucose 99 mg/dL (65-110); Potassium 4.3 mmol/L (3.4-5.0); Sodium 139 mmol/L (137-145); Total Protein 7.8 g/dL (6.3-8.2)
== END 2025-07-26 09:34 | disposition home or self-care (01) ==
LOC: ANHLAB 09:34
PROVIDERS: PCP Family Medicine; Visit Provider Internal Medicine Hematology & Oncology
DX: D05.12 Intraductal carcinoma in situ of left breast (principal)
CPT/HCPCS: 36415; 80047; 80053; 85025